=== PATIENT | male | born 1965 | race Caucasian/White ===

== ENCOUNTER → 2019-01-09 14:31 | Outpatient (CLI) | payer OTHER, SELFPAY ==
--- NOTE | 2019-01-09 | DI.RAD.S_ITS ---
PROCEDURE: XR CHEST 2V INDICATIONS: Bronchitis, not specified as acute or chronic TECHNIQUE: 2 views of the chest were acquired. COMPARISON: [facility], , CHEST 2 VIEW, 08/17/2016, 10:55. FINDINGS: Surgical changes and devices: None. Lungs and pleura: Lungs are clear. No pleural effusions or pneumothorax. Mediastinum: Mediastinal contours are normal. Heart size is normal. Bones and chest wall: No suspicious bony abnormalities. Soft tissues appear unremarkable. IMPRESSION: No acute cardiopulmonary disease. Dictated by: Radha Samano M.D. on 01/09/2019 at 17:08 Approved by: Radha Samano M.D. on 01/09/2019 at 17:09
== END ==
PROVIDERS: Family Provider Internal Medicine; PCP Internal Medicine; Visit Provider Internal Medicine
DX: J40 Bronchitis, not specified as acute or chronic (principal)
CPT/HCPCS: 71046

== ENCOUNTER 2019-09-25 16:36 | Emergency (ER) | payer OTHER, SELFPAY ==
--- NOTE | 2019-09-25 16:39 | DI.RAD.S_ITS ---
PROCEDURE: XR CHEST 1V INDICATIONS: chest pain TECHNIQUE: One view of the chest was acquired. COMPARISON: [facility], CT, CHEST/ABD/PEL WITH CONTRAST, 01/24/2015, 15:57. [facility], CR, CHEST 2 VIEW, 08/17/2016, 10:55. [facility], CR, XR CHEST 2V, 01/09/2019, 14:36. FINDINGS: Surgical changes and devices: None. Lungs and pleura: An incomplete inspiratory result is noted, causing a crowded appearance to the lung markings. No focal infiltrates are seen. No pneumothorax or significant pleural effusions are seen. Mediastinum: Mediastinal contours appear normal. Heart size is near the upper limits of normal. Bones and chest wall: No suspicious bony lesions. Age-appropriate bony degenerative changes are seen. Overlying soft tissues appear unremarkable. IMPRESSION: Portable chest within normal limits. Dictated by: Rajan Abbott M.D. on 09/25/2019 at 16:14 Approved by: Rajan Abbott M.D. on 09/25/2019 at 16:15
[2019-09-25 16:45] VITALS: BP 121/83; PULSE 64; RESP 20; TEMP 36.8; O2SAT 97
[2019-09-25 16:59] LABS: Add Manual Diff / Slide Review NO; Basophils Absolute Auto 100 /uL (0-100); Eosinophils Absolute Auto 400 /uL (0-450); Eosinophils Percent Auto 4.3 % (2-4); Lymphocytes Absolute Auto 2600 /uL (1100-4500); Lymphocytes Percent Auto 29.5 % (25-40); Mean Corpuscular HGB Conc 34.1 % (30-36); Monocytes Absolute Auto 800 /uL (0-900); Monocytes Percent Auto 8.7 % (3-14); Neutrophils Absolute Auto 5000 /uL (1500-7000); Neutrophils Percent Auto 56.5 % (50-75); Platelet Count 261 X10^3/uL (150-400); Red Blood Cell Count 4.82 X10^6/uL (4.5-5.9); Red Cell Distribution Width 13.8 % (11.6-14.8); White Blood Cell Count 8.9 X10^3/uL (4.5-11.0)
[2019-09-25 17:08] LABS: Prothrombin Time 11.1 SECONDS (10.1-12.7)
[2019-09-25 17:11] LABS: PTT Partial Thromboplastin Tim 33 SECONDS (26.4-36.2)
[2019-09-25 17:14] LABS: Alanine Aminotransferase 22 IU/L (<50); Albumin 4.2 g/dL (3.5-5.0); Albumin Globulin Ratio 1.2 (1.0-2.8); Alkaline Phosphatase 80 U/L (38-126); Aspartate Aminotransferase 24 IU/L (17-59); BUN Creatinine Ratio 14.4 (6-22); Bilirubin Total 0.3 mg/dL (0.2-1.3); Blood Urea Nitrogen 14 mg/dL (9-20); Calcium 9.3 mg/dL (8.4-10.2); Carbon Dioxide 25 mmol/L (22-32); Chloride 108 mmol/L (98-107); Creatine Kinase 81 U/L (55-170); Estimated Glomerular Filt Rate > 60.0 mL/min (>60); Globulin 3.6 g/dL (1.7-4.1); Glucose 104 mg/dL (70-100); HEMOLYSIS < 15 (0-50); Lipase 155 U/L (23-300); Potassium 3.8 mmol/L (3.4-5.1); Sodium 141 mmol/L (137-145); Total Protein 7.8 g/dL (6.3-8.2)
--- NOTE | 2019-09-25 17:23 | ED_ITS ---
HPI - Chest Pain <SERA Daley - Last Filed: 09/25/19 20:38> General Chief Complaint: Chest Pain Stated Complaint: Chest Pain Time Seen by Provider: 09/25/19 16:44 Source: patient and EMS Mode of arrival: EMS Limitations: no limitations History of Present Illness HPI narrative: This is a 54-year-old gentleman who occasionally smokes cigar who presents to ED with [facility] with chief complain of mid sternal chest pressure that he had for last 10 years on and off but today he felt his pain has been more severe and lasting longer than usual. Patient reports the daily chest comfort is in 2-3/10 in same location but today the the severity increased to 6- 8/10 which occurred at rest while he was sitting on a chair at 1600. Patient denies any aggravating or relieving factors. Patient reports associated symptoms as difficulty breathing, panting breaths but denies nausea, vomiting, cold sweats. Patient denies recent fever, coughing, travel, or ill contact. Patient states when he has chest pain like this he takes half tab of oxycodone and Xanax to help with discomfort. Patient reports he had taken oxycodone and Xanax along additional dose of lisinopril 25 mg and 4 taps of baby aspirin. He has not seen invasive physician Dr. Palacios for last 1.5 year and no recent echoc ardiogram, stress test has been done. Patient received 2 doses of nitroglycerin and 6 mg of morphine per EMS EN route which decrease his symptoms and reports pain as 3/10 at this time without dyspnea. Patient states he has frequent PVCs and takes carvedilol are for this. Patient has history of H pylori and had fundosplasty surgery. His primary care physician is Dr. Mobley and recently discussed about getting EGD in the near future. Related Data Home Medications Medication Instructions Recorded Confirmed ALBUTEROL SULFATE (Ventolin / #0 05/11/10 Proventil) Zolpidem Tartrate (Ambien) #0 05/11/10 ASPIRIN (Aspirin Low Dose) 325 mg PO Q DAY #0 07/17/10 LISINOPRIL (Zestril / Prinivil) 40 mg PO Q DAY #0 07/17/10 alprazolam [Xanax] #0 02/01/17 carvedilol [Coreg] #0 02/01/17 Previous Rx's Medication Instructions Recorded omeprazole 20 mg PO DAILY 14 Days #14 cap 09/25/19 Allergies Allergy/AdvReac Type Severity Reaction Status Date / Time clarithromycin Allergy Mild Verified 09/25/19 16:53 [CLARITHROMYCIN] Review of Systems <SERA Daley - Last Filed: 09/25/19 20:38> Review of Systems Narrative: General: Denies fever, chills, fatigue, malaise, sweats. HEENT: Denies sinus pain, ear pain, sore throat, difficulty swallowing, dizziness. Respiratory: Denies dyspnea, (+) pending like breathing with chest pain, cough, wheezing, hemoptysis, sputum. Cardiovascular: See HPI Gastrointestinal: Denies nausea, vomiting, abdominal pain, diarrhea, constipation, melena. : Denies dysuria, frequency, incontinence, hematuria, urinary retention. Musculoskeletal: Denies weakness, joint pain or bony pain. Skin: Denies rash, skin lesions, or other. Neurologic: Denies weakness, headache, numbness, change in speech, confusion, seizures, incoordination. Psychiatric: No concerning psychosocial issues. 12-point review of systems is negative except for those stated above. Patient History <SERA Daley - Last Filed: 09/25/19 20:38> Medical History Anxiety (Acute) Chest pain (Acute) H. pylori infection (Acute) Hypertension (Acute) Social History Smoking Status: Former smoker Smoking Status: Former smoker tobacco type: cigars alcohol intake frequency: 0-2 drinks per day Substance Use Type: does not use Exam <SERA Daley - Last Filed: 09/25/19 20:38> Narrative Exam Narrative: GEN: Alert, oriented x 3, well appearing and nourished, and in no acute distress. Head: Normal cephalic, atraumatic. No scalp or temporal tenderness, palpable mass or rash. EYES: Pupils are equal, round, and reactive to light and accommodation. Extraocular muscles are intact bilaterally. There is no subconjunctival hemorrhage, exudate and sclera non-icteric. ENT: Bilateral auditory canals and tympanic membranes clear. Hearing grossly intact. Nose without bleeding, purulent discharge or deviation. Facial sinuses nontender to palpate. Mucous membrane moist, no mucosal lesion. Throat without erythema, tonsillar hypertrophy or exudate. Uvula in midline, airway patent. Neck: Trachea in midline. No JVD, non-tender without lymphadenopathy. No masses or thyroid megaly. Supple, non-tender and no meningeal signs. CARDIAC: Normal regular rate and rhythm without murmurs, gallops, or rubs. No chest wall tenderness. No peripheral edema, cyanosis or pallor. Capillary refill is less than 2 seconds. RESPIRATORY: Lungs are clear to auscultate bilaterally. No cough, wheezes, r ales, or rhonchi. No stridor, respiratory distress, increase work of breathing, or accessary muscle used. ABD: Abdomen soft, nontender and non-distended. No guarding or rebound tenderness to palpate. Bowel sounds are normal in all 4 quadrants. There is no palpable masses or organomegaly. EXT: Full painless ROM of all extremities with no loss of sensation, strength, effusion or edema. SKIN: Warm, dry, normal color for patient. No erythema, lesions or rash over visible areas. BACK: Nontender without deformity or crepitance. No flank tenderness. NEUROLOGICAL: Alert and oriented to place, time and person. Sensation and motor function intact bilaterally. No facial droops, dysphasia. PSYCHIATRIC: Good judgement and reason, without hallucinations, abnormal affect or abnormal behaviors during the examination. Patient is not suicidal. Initial Vital Signs Initial Vital Signs: Vital Signs Temperature 98.2 F 09/25/19 16:45 Pulse Rate 64 09/25/19 16:45 Respiratory Rate 20 09/25/19 16:45 Blood Pressure 121/83 09/25/19 16:45 Pulse Oximetry 97 09/25/19 16:45 <Meet Mott DO - Last Filed: 09/26/19 07:29> Initial Vital Signs Initial Vital Signs: Vital Signs Temperature 98.2 F 09/25/19 16:45 Pulse Rate 64 09/25/19 16:45 Respiratory Rate 20 09/25/19 16:45 Blood Pressure 121/83 09/25/19 16:45 Pulse Oximetry 97 09/25/19 16:45 Scores <[facility] - Last Filed: 09/25/19 20:38> GCS [place] coma scale eye opening: Spontaneous Ron coma scale verbal response: Orientated Ron coma scale motor response: Obey commands [place] coma scale total score: 15 HEART Score Heart Score history: Slightly Suspicious Heart Score EKG: Normal Heart Score Age: 45-64 years old Heart Score risk factors: 1-2 risk factors Heart Score troponin: < or = to normal limit Heart Score Total: 2 Course <[facility] - Last Filed: 09/25/19 20:38> Orders Ordered: Discontinued Medications Pantoprazole Sodium (Protonix) 40 mg IV NOW ONE Stop: 09/25/19 17:11 Last Admin: 09/25/19 17:33 Dose: 40 mg Documented by: VIOLETA Reevaluation(s) Reevaluation #1: The patient reports chest pain mostly resolved at this time and feeling better. Time: 18:25 Vital Signs Vital signs: Vital Signs - 8 hr 09/25/19 16:45 09/25/19 17:33 09/25/19 18:34 Temperature 98.2 F Pulse Rate 64 64 62 Respiratory Rate 20 18 13 Blood Pressure 121/83 Blood Pressure [Right Arm] 111/70 126/78 Pulse Oximetry 97 97 96 09/25/19 20:14 Temperature Pulse Rate 60 Respiratory Rate 10 L Blood Pressure Blood Pressure [Right Arm] 130/80 Pulse Oximetry 97 <Meet Mott DO - Last Filed: 09/26/19 07:29> Orders Ordered: Discontinued Medications Pantoprazole Sodium (Protonix) 40 mg IV NOW ONE Stop: 09/25/19 17:11 Last Admin: 09/25/19 17:33 Dose: 40 mg Documented by: VIOLETA Vital Signs Vital signs: Vital Signs - 8 hr 09/25/19 16:45 09/25/19 17:33 09/25/19 18:34 Temperature 98.2 F Pulse Rate 64 64 62 Respiratory Rate 20 18 13 Blood Pressure 121/83 Blood Pressure [Right Arm] 111/70 126/78 Pulse Oximetry 97 97 96 09/25/19 20:14 Temperature Pulse Rate 60 Respiratory Rate 10 L Blood Pressure Blood Pressure [Right Arm] 130/80 Pulse Oximetry 97 MDM - Chest Pain <Shalom SERA Pedro - Last Filed: 09/25/19 20:38> Differential Diagnosis Differential diagnosis: Likely stable angina, atypical chest pain and other (GERD, gastritis) Medical Records Data Attestation: I reviewed the patient's medical records. Lab Data Attestation: I reviewed the patient's lab results. Result diagrams: 09/25/19 16:50 09/25/19 16:50 Labs: Lab Results 09/25/19 09/25/19 09/25/19 Range/Units 16:50 16:50 16:50 WBC 8.9 (4.5-11.0) X10^3/uL RBC 4.82 (4.5-5.9) X10^6/uL Hgb 14.0 (13.5-17.5) g/dL Hct 41.0 (41-53) % MCV 85.0 (80-100) fL MCH 29.0 (26-34) PG MCHC 34.1 (30-36) % RDW 13.8 (11.6-14.8) % Plt Count 261 (150-400) X10^3/uL Neut % (Auto) 56.5 (50-75) % Lymph % (Auto) 29.5 (25-40) % [place] % (Auto) 8.7 (3-14) % Eos % (Auto) 4.3 H (2-4) % Baso % (Auto) 1.0 (0-2) % Neut # (Auto) 5000 (9705-2789) /uL Lymph # (Auto) 2600 (1160-6410) /uL [place] # (Auto) 800 (0-900) /uL Eos # (Auto) 400 (0-450) /uL Baso # (Auto) 100 (0-100) /uL PT 11.1 (10.1-12.7) SECONDS INR 1.0 (0.9-1.3) APTT 33 (26.4-36.2) SECONDS Sodium 141 (137-145) mmol/L Potassium 3.8 (3.4-5.1) mmol/L Chloride 108 H (98-107) mmol/L Carbon Dioxide 25 (22-32) mmol/L BUN 14 (9-20) mg/dL Creatinine 0.97 (0.66-1.25) mg/dL Estimated GFR > 60.0 (>60) mL/min BUN/Creatinine Ratio 14.4 (6-22) Glucose 104 H (70-100) mg/dL Calcium 9.3 (8.4-10.2) mg/dL Total Bilirubin 0.3 (0.2-1.3) mg/dL AST 24 (17-59) IU/L ALT 22 (<50) IU/L Alkaline Phosphatase 80 (38-126) U/L Total Creatine Kinase 81 (55-170) U/L CK-MB (CK-2) TNP CK-MB (CK-2) Rel Index TNP Troponin I < 0.012 (0.01-0.034) ng/mL Total Protein 7.8 (6.3-8.2) g/dL Albumin 4.2 (3.5-5.0) g/dL Globulin 3.6 (1.7-4.1) g/dL Albumin/Globulin Ratio 1.2 (1.0-2.8) Lipase 155 (23-300) U/L 09/25/19 Range/Units 19:14 WBC (4.5-11.0) X10^3/uL RBC (4.5-5.9) X10^6/uL Hgb (13.5-17.5) g/dL Hct (41-53) % MCV (80-100) fL MCH (26-34) PG MCHC (30-36) % RDW (11.6-14.8) % Plt Count (150-400) X10^3/uL Neut % (Auto) (50-75) % Lymph % (Auto) (25-40) % [place] % (Auto) (3-14) % Eos % (Auto) (2-4) % Baso % (Auto) (0-2) % Neut # (Auto) (7457-3985) /uL Lymph # (Auto) (0562-2391) /uL [place] # (Auto) (0-900) /uL Eos # (Auto) (0-450) /uL Baso # (Auto) (0-100) /uL PT (10.1-12.7) SECONDS INR (0.9-1.3) APTT (26.4-36.2) SECONDS Sodium (137-145) mmol/L Potassium (3.4-5.1) mmol/L Chloride (98-107) mmol/L Carbon Dioxide (22-32) mmol/L BUN (9-20) mg/dL Creatinine (0.66-1.25) mg/dL Estimated GFR (>60) mL/min BUN/Creatinine Ratio (6-22) Glucose (70-100) mg/dL Calcium (8.4-10.2) mg/dL Total Bilirubin (0.2-1.3) mg/dL AST (17-59) IU/L ALT (<50) IU/L Alkaline Phosphatase (38-126) U/L Total Creatine Kinase 75 (55-170) U/L CK-MB (CK-2) TNP CK-MB (CK-2) Rel Index TNP Troponin I < 0.012 (0.01-0.034) ng/mL Total Protein (6.3-8.2) g/dL Albumin (3.5-5.0) g/dL Globulin (1.7-4.1) g/dL Albumin/Globulin Ratio (1.0-2.8) Lipase (23-300) U/L Imaging Data Chest x-ray: Radiologist's Impression: [place] [address] XRay Report Signed Patient: Wali Eric KMR#: [id number] : 1965Acct:[id number] Age/Sex: 54 / MDate of Service: 09/25/19 Loc: ED Accession Number: [id number] Procedure: XR chest 1V Ordering Provider: Meet Mott D.O. PROCEDURE: XR CHEST 1V INDICATIONS: chest pain TECHNIQUE: One view of the chest was acquired. COMPARISON: [facility], CT, CHEST/ABD/PEL WITH CONTRAST, 01/24/2015, 15:57. [facility], CR, CHEST 2 VIEW, 08/17/2016, 10:55. [facility], CR, XR CHEST 2V, 01/09/2019, 14:36. FINDINGS: Surgical changes and devices: None. Lungs and pleura: An incomplete inspiratory result is noted, causing a crowded appearance to the lung markings. No focal infiltrates are seen. No pneumothorax or significant pleural effusions are seen. Mediastinum: Mediastinal contours appear normal. Heart size is near the upper limits of normal. Bones and chest wall: No suspicious bony lesions. Age-appropriate bony degenerative changes are seen. Overlying soft tissues appear unremarkable. IMPRESSION: Portable chest within normal limits. Dictated by: Rajan Abbott M.D. on 09/25/2019 at 16:14 Approved by: Rajan Abbott M.D. on 09/25/2019 at 16:15 ECG Data Attestation: I personally reviewed and interpreted this ECG as follows: Interpretation: Sinus rhythm rate at 67. Normal [place]. SC int 200, QRS duration 84, QT/QTC 418/[address] elevation or depression. Previous EKG shows sinus rhythm and SVT with nonspecific T-wave abnormality MDM Narrative Medical decision making narrative: This is a 54-year-old gentleman who was brought in by would be EMS with mid chest pressure like discomfort which started at 4:00 p.m. at rest with some difficulty breathing. Patient reports patient has similar discomfort for last 10 years but today the pain seems little bit more severe and lasted longer. Patient had taken oxycodone, Xanax, and 4 baby aspirins before coming into ED. patient was medicated with nitroglycerin 2 doses and morphine 6 mg and rale to ED. patient's physical exam was unremarkable. EKG was in sinus rhythm rate at 67. CBC and chemistry Tests were unremarkable with normal PT, PTT. Initial and 2nd cardiac enzymes were negative. Chest x-ray did not show acute findings. Patient reports resolved symptoms after medicated with pantoprazole. Findings were discussed with the patient. Patient has a history of H pyloric and cholecystectomy. Patient is not currently taking any PPI but states take anti acid as needed. Patient discharged to home with omeprazole for next 2 weeks to use and follow with PCP to discuss continue with planned EGD test and also to follow-up with invasive physician for further evaluation. Return precautions were discussed with patient and verbalized understanding and in agreement with treatment plan. <Meet Mott, - Last Filed: 09/26/19 07:29> Lab Data Labs: Lab Results 09/25/19 09/25/19 09/25/19 Range/Units 16:50 16:50 16:50 WBC 8.9 (4.5-11.0) X10^3/uL RBC 4.82 (4.5-5.9) X10^6/uL Hgb 14.0 (13.5-17.5) g/dL Hct 41.0 (41-53) % MCV 85.0 (80-100) fL MCH 29.0 (26-34) PG MCHC 34.1 (30-36) % RDW 13.8 (11.6-14.8) % Plt Count 261 (150-400) X10^3/uL Neut % (Auto) 56.5 (50-75) % Lymph % (Auto) 29.5 (25-40) % [place] % (Auto) 8.7 (3-14) % Eos % (Auto) 4.3 H (2-4) % Baso % (Auto) 1.0 (0-2) % Neut # (Auto) 5000 (3061-1500) /uL Lymph # (Auto) 2600 (2382-1578) /uL [place] # (Auto) 800 (0-900) /uL Eos # (Auto) 400 (0-450) /uL Baso # (Auto) 100 (0-100) /uL PT 11.1 (10.1-12.7) SECONDS INR 1.0 (0.9-1.3) APTT 33 (26.4-36.2) SECONDS Sodium 141 (137-145) mmol/L Potassium 3.8 (3.4-5.1) mmol/L Chloride 108 H (98-107) mmol/L Carbon Dioxide 25 (22-32) mmol/L BUN 14 (9-20) mg/dL Creatinine 0.97 (0.66-1.25) mg/dL Estimated GFR > 60.0 (>60) mL/min BUN/Creatinine Ratio 14.4 (6-22) Glucose 104 H (70-100) mg/dL Calcium 9.3 (8.4-10.2) mg/dL Total Bilirubin 0.3 (0.2-1.3) mg/dL AST 24 (17-59) IU/L ALT 22 (<50) IU/L Alkaline Phosphatase 80 (38-126) U/L Total Creatine Kinase 81 (55-170) U/L CK-MB (CK-2) TNP CK-MB (CK-2) Rel Index TNP Troponin I < 0.012 (0.01-0.034) ng/mL Total Protein 7.8 (6.3-8.2) g/dL Albumin 4.2 (3.5-5.0) g/dL Globulin 3.6 (1.7-4.1) g/dL Albumin/Globulin Ratio 1.2 (1.0-2.8) Lipase 155 (23-300) U/L 09/25/19 Range/Units 19:14 WBC (4.5-11.0) X10^3/uL RBC (4.5-5.9) X10^6/uL Hgb (13.5-17.5) g/dL Hct (41-53) % MCV (80-100) fL MCH (26-34) PG MCHC (30-36) % RDW (11.6-14.8) % Plt Count (150-400) X10^3/uL Neut % (Auto) (50-75) % Lymph % (Auto) (25-40) % [place] % (Auto) (3-14) % Eos % (Auto) (2-4) % Baso % (Auto) (0-2) % Neut # (Auto) (3238-5204) /uL Lymph # (Auto) (5100-4059) /uL [place] # (Auto) (0-900) /uL Eos # (Auto) (0-450) /uL Baso # (Auto) (0-100) /uL PT (10.1-12.7) SECONDS INR (0.9-1.3) APTT (26.4-36.2) SECONDS Sodium (137-145) mmol/L Potassium (3.4-5.1) mmol/L Chloride (98-107) mmol/L Carbon Dioxide (22-32) mmol/L BUN (9-20) mg/dL Creatinine (0.66-1.25) mg/dL Estimated GFR (>60) mL/min BUN/Creatinine Ratio (6-22) Glucose (70-100) mg/dL Calcium (8.4-10.2) mg/dL Total Bilirubin (0.2-1.3) mg/dL AST (17-59) IU/L ALT (<50) IU/L Alkaline Phosphatase (38-126) U/L Total Creatine Kinase 75 (55-170) U/L CK-MB (CK-2) TNP CK-MB (CK-2) Rel Index TNP Troponin I < 0.012 (0.01-0.034) ng/mL Total Protein (6.3-8.2) g/dL Albumin (3.5-5.0) g/dL Globulin (1.7-4.1) g/dL Albumin/Globulin Ratio (1.0-2.8) Lipase (23-300) U/L Discharge Plan Departure Patient Disposition: Home Clinical Impression: Atypical chest pain Discharge Date/Time: 09/25/19 20:33 Instructions: DI for Atypical Chest Pain Activity Restrictions/Additional Instructions: You have been diagnosed with [atypical chest pain is likely due to esophageal spasm. EKG is normal sinus rhythm. CBC and chemistries were unremarkable. Cardiac enzymes for Initial and post 3 hour after the onset of chest pain were negative. Chest x-ray Does not show acute findings. Your symptoms have improved after your arrived to ED and received pantoprazole IV]. What to do: *Take your medications as directed. Please continue your medications and start taking omeprazole once a day for next 2 weeks. This medication has been transmitted to [facility] in [place] *Follow up with your primary care provider in 2-3 days, call for an appointment. Let them know you were seen in the ED and that we asked you to be seen in follow up. Please continue with the plan for EGD with Dr. Mobley. Please follow-up with your invasive physician Dr. Palacios for further evaluation and testing. *Return to ED if you have any new, worsening, or concerning symptoms, such as [chest pain, breathing difficulty, unable to tolerate fluids, fainting like episodes, or any acute concerns]. Prescriptions: New omeprazole 20 mg capsule,delayed release(DR/EC) 20 mg PO DAILY 14 Days Qty: 14 RF: 0 No Action ALBUTEROL SULFATE (Ventolin / Proventil) Qty: 0 RF: 0 Zolpidem Tartrate (Ambien) Qty: 0 RF: 0 ASPIRIN (Aspirin Low Dose) 325 mg PO Q DAY Qty: 0 RF: 0 LISINOPRIL (Zestril / Prinivil) 40 mg PO Q DAY Qty: 0 RF: 0 carvedilol [Coreg] 25 MG tablet Qty: 0 RF: 0 alprazolam [Xanax] 0.5 MG tablet Qty: 0 RF: 0 Referrals: Eder Rivera MD [Primary Care Provider] - <Meet Mott DO - Last Filed: 09/26/19 07:29> Sign Out Provider Sign Out Attestation: Dr Mott Co-Sign Statement: I was available for consultation during this patient's emergency department visit. This chart is signed by myself for administrative purposes only. I did not have direct contact with this patient during this visit. They were seen independently by the APC.
[2019-09-25 17:25] LABS: Troponin I < 0.012 ng/mL (0.01-0.034)
[2019-09-25 17:33] VITALS: BP 111/70; PULSE 64; RESP 18; O2SAT 97
[2019-09-25] MEDS: PANTOPRAZOLE 40 MG VIAL IV (17:33)
[2019-09-25 18:34] VITALS: BP 126/78; PULSE 62; RESP 13; O2SAT 96
[2019-09-25 19:29] LABS: Creatine Kinase 75 U/L (55-170)
[2019-09-25 19:42] LABS: Troponin I < 0.012 ng/mL (0.01-0.034)
--- NOTE | 2019-09-25 19:43 | PC.NURSE ---
repeat trop drawn by lab
[2019-09-25 20:14] VITALS: BP 130/80; PULSE 60; RESP 10; O2SAT 97
== END 2019-09-25 20:33 | disposition home or self-care (01) ==
PROVIDERS: Emergency Medicine; Emergency Provider Nurse Practitioner Family; Family Provider Internal Medicine; PCP Internal Medicine
DX: R07.89 Other chest pain (principal); F41.9 Anxiety disorder, unspecified; I10 Essential (primary) hypertension
CPT/HCPCS: 36415; 71045; 80053; 82550; 83690; 84484; 85025; 85610; 85730; 93005; 96374; 99284; C9113

== ENCOUNTER → 2020-05-20 15:05 | Outpatient (CLI) | payer OTHER, SELFPAY ==
--- NOTE | 2020-05-20 15:37 | DI.RAD.S_ITS ---
PROCEDURE: XR LUMBAR SPINE 2-3V INDICATIONS: LOW BACK PAIN TECHNIQUE: 3 views of the lumbar spine were acquired. COMPARISON: None. FINDINGS: Bones: 5 [id number] vertebrae are present. There is normal bony alignment. No vertebral body compression fractures. No suspicious bony lesions. Note is made of a mild degree of degenerative disc height reduction from L3 through S1, but facet osteoarthritis is moderate at L3-4 and L4-5 and moderately severe at L5-S1. This allows anterolisthesis, grade 1, of L4 on L5. Soft tissues: Overlying bowel gas pattern is normal. No suspicious soft tissue calcifications. IMPRESSION: Only a small degree of degenerative disc disease is found best seen at L5-S1. Facet osteoarthritis becomes progressively more prominent from L3 through S1 and is most pronounced at L5-S1 where spinal and foraminal stenosis likely is present. Dictated by: Conor Dumont M.D. on 05/20/2020 at 16:25 Approved by: Conor Dumont M.D. on 05/20/2020 at 16:27
== END ==
PROVIDERS: Family Provider Internal Medicine; PCP Internal Medicine; Referring Provider Orthopaedic Surgery; Visit Provider Orthopaedic Surgery
DX: M54.5 Low back pain (principal); R07.2 Precordial pain; M47.816 Spondylosis without myelopathy or radiculopathy, lumbar region; M47.817 Spondylosis without myelopathy or radiculopathy, lumbosacral region
CPT/HCPCS: 72100

== ENCOUNTER 2020-10-02 16:52 | Emergency (ER) | payer OTHER, SELFPAY ==
[2020-10-02] VITALS (10 sets, daily range): BP systolic 133–178; BP diastolic 72–89; PULSE 69–90; RESP 13–22; TEMP 36.8; O2SAT 98–100; BMI 30.5
--- NOTE | 2020-10-02 17:08 | DI.RAD.S_ITS ---
PROCEDURE: XR CHEST 1V INDICATIONS: chest pain TECHNIQUE: One view of the chest was acquired. COMPARISON: [facility], CR, CHEST 2VW, 05/02/2012, 12:18. [facility], CR, CHEST 2 VIEW, 08/17/2016, 10:55. [facility], CR, XR CHEST 2V, 01/09/2019, 14:36. [facility], CR, XR CHEST 1V, 09/25/2019, 16:51. FINDINGS: Surgical changes and devices: None. Lungs and pleura: An incomplete inspiratory result is noted, causing a crowded appearance to the lung markings. No focal infiltrates are seen. No pneumothorax or significant pleural effusions are seen. Mediastinum: Mediastinal contours appear normal. Heart size is normal. Bones and chest wall: No suspicious bony lesions. Overlying soft tissues appear unremarkable. IMPRESSION: Limited portable chest examination, without a significant cardiopulmonary abnormality identified. Dictated by: Rajan Abbott M.D. on 10/02/2020 at 16:27 Approved by: Rajan Abbott M.D. on 10/02/2020 at 16:27
[2020-10-02 17:25] LABS: Add Manual Diff / Slide Review NO; Basophils Absolute Auto 100 /uL (0-100); Basophils Percent Auto 0.9 % (0-2); Eosinophils Absolute Auto 200 /uL (0-450); Eosinophils Percent Auto 2.2 % (2-4); Hematocrit 43.1 % (41-53); Hemoglobin 14.7 g/dL (13.5-17.5); INR 1.1 (0.9-1.3); Lymphocytes Absolute Auto 2600 /uL (1100-4500); Lymphocytes Percent Auto 27.6 % (25-40); Mean Corpuscular HGB Conc 34.1 % (30-36); Mean Corpuscular Hemoglobin 28.9 PG (26-34); Mean Corpuscular Volume 84.9 fL (80-100); Monocytes Absolute Auto 900 /uL (0-900); Monocytes Percent Auto 9.4 % (3-14); Neutrophils Absolute Auto 5600 /uL (1500-7000); Neutrophils Percent Auto 59.9 % (50-75); Platelet Count 240 X10^3/uL (150-400); Prothrombin Time 12.3 SECONDS (10.1-12.7); Red Blood Cell Count 5.08 X10^6/uL (4.5-5.9); Red Cell Distribution Width 13.8 % (11.6-14.8); White Blood Cell Count 9.4 X10^3/uL (4.5-11.0)
[2020-10-02 17:27] LABS: PTT Partial Thromboplastin Tim 32 SECONDS (26.4-36.2)
[2020-10-02] MEDS: FAMOTIDINE 20 MG/50 ML PIGGYBACK 200 MG IV (17:27)
[2020-10-02] MEDS: MAG HYDROX/ALUMINUM/SIMETH SUS 20 ML, LIDOCAINE VISCOUS 2% 15 ML PO (17:27)
[2020-10-02 17:29] LABS: Alanine Aminotransferase 22 IU/L (<50); Albumin 4.4 g/dL (3.5-5.0); Albumin Globulin Ratio 1.3 (1.0-2.8); Alkaline Phosphatase 85 U/L (38-126); Aspartate Aminotransferase 26 IU/L (17-59); BUN Creatinine Ratio 13.8 (6-22); Bilirubin Total 0.3 mg/dL (0.2-1.3); Blood Urea Nitrogen 15 mg/dL (9-20); Calcium 9.5 mg/dL (8.4-10.2); Carbon Dioxide 28 mmol/L (22-32); Chloride 107 mmol/L (98-107); Creatine Kinase 99 U/L (55-170); Estimated Glomerular Filt Rate > 60.0 mL/min (>60); Globulin 3.5 g/dL (1.7-4.1); Glucose 85 mg/dL (70-100); HEMOLYSIS < 15 (0-50); Lipase 107 U/L (23-300); Potassium 3.9 mmol/L (3.4-5.1); Sodium 143 mmol/L (137-145); Total Protein 7.9 g/dL (6.3-8.2)
[2020-10-02 17:41] LABS: NT-proBNP (BNP-Adult 18+) 209 pg/mL (<125); Troponin I < 0.012 ng/mL (0.01-0.034)
--- NOTE | 2020-10-02 17:49 | PC.NURSE ---
Patient comes in to the ED with a complaint of having 10 years of chest pain. His said that today he took some CBD drops but is unable to state what he took exactly.
--- NOTE | 2020-10-02 18:08 | ED.CHESTPAIN ---
HPI - Chest Pain General Chief Complaint: Chest Pain Stated Complaint: Chest pain Time Seen by Provider: 10/02/20 17:05 Source: patient Mode of arrival: Ambulatory Limitations: no limitations History of Present Illness HPI narrative: Patient is a 55-year-old male who has had issues with ulcers and esophageal spasms in the past. He has had a Jon fundoplication in the past. Here for evaluation of a fairly sudden onset of sharp chest discomfort located in his mid chest and upper abdomen. He did occur while he was eating earlier today when the event happened. He states that he did eat more this evening when he normally does. He also ate some types of food which he normally does not eat and did think that they were very spicy. At the time my evaluation he did report improvement of some of his symptoms however he did receive GI medications prior to my arrival. He has had symptoms like this in the past specifically 1 year ago when he states that at that time he had a workup for cardiac issues in the emergency department and was subsequently discharged. Related Data Home Medications Medication Instructions Recorded Confirmed ALBUTEROL SULFATE (Ventolin / #0 05/11/10 Proventil) Zolpidem Tartrate (Ambien) #0 05/11/10 ASPIRIN (Aspirin Low Dose) 325 mg PO Q DAY #0 07/17/10 LISINOPRIL (Zestril / Prinivil) 40 mg PO Q DAY #0 07/17/10 alprazolam [Xanax] #0 02/01/17 carvedilol [Coreg] #0 02/01/17 Allergies Allergy/AdvReac Type Severity Reaction Status Date / Time clarithromycin Allergy Mild Verified 10/02/20 17:06 [CLARITHROMYCIN] Review of Systems Constitutional Constitutional: Denies fatigue, Denies fever(s) and Denies headache(s) Eyes Eyes: Denies change in vision ENT Ears, Nose, Mouth, and Throat: Denies headache(s) Cardiovascular Cardiovascular: Reports chest pain and Denies dyspnea Respiratory Respiratory: Denies dyspnea Gastrointestinal Gastrointestinal: Reports abdominal pain (Upper abdomen), Denies change in bowel habits, Denies nausea and Denies vomiting Genitourinary Genitourinary: Denies dysuria Genitourinary: Denies dysuria Musculoskeletal Musculoskeletal: Denies myalgias Integumentary/Breasts Skin/Breast: Denies rash Neurologic Neurologic: Denies behavioral changes and Denies headache(s) Psychiatric Psychiatric: Denies behavioral changes Endocrine Endocrine: Denies fatigue Hematologic/Lymphatic On Anticoagulants: No Allergic/Immunologic Allergic/Immunologic: Denies urticaria Patient History Medical History Anxiety Chest pain H. pylori infection Hypertension Social History Smoking Status: Former smoker Smoking Status: Former smoker tobacco type: cigars alcohol intake frequency: 0-2 drinks per day Substance Use Type: does not use Exam Initial Vital Signs Initial Vital Signs: Vital Signs Temperature 98.2 F 10/02/20 16:59 Pulse Rate 84 10/02/20 16:59 Respiratory Rate 16 10/02/20 16:59 Blood Pressure 178/88 H 10/02/20 16:59 Pulse Oximetry 99 10/02/20 16:59 Const General: cooperative and comfortable Limitations: mental status not altered HENMT Head: normal to inspection and normocephalic Chest Chest: No crepitus and No tenderness Resp Effort & Inspection: normal respiratory effort Auscultation: clear to auscultation bilaterally Cardio Rate: regular rate Rhythm: regular rhythm GI Inspection: non-distended Palpation: soft Skin Lesions: no lesions Rashes: no rashes Neuro General: patient alert, patient awake and patient oriented x3 Cognition: normal cognition Speech: speech normal Extrem General: normal to inspection and capillary refill normal Psych Appearance: grossly normal and well kempt Scores HEART Score Heart Score history: Slightly Suspicious Heart Score EKG: Non-Specific repolarization disturbance Heart Score Age: 45-64 years old Heart Score risk factors: 1-2 risk factors Heart Score troponin: < or = to normal limit Heart Score Total: 3 Course Orders Ordered: ED Orders 10/02/20 17:04 Complete Blood Count AUTO DIFF Stat Comprehensive Metabolic Panel Stat Lipase Stat NT-proBNP (BNP-Adult 18+) Stat Partial Thromboplastin Time Stat Prothrombin Time INR Stat Troponin & CK Cardiac Panel Stat 10/02/20 17:08 XR chest 1V Stat 10/02/20 19:00 Troponin & CK Cardiac Panel Stat Discontinued Medications Al Hydrox/Mg Hydrox/Simethicone 20 ml/ Lidocaine HCl 15 ml 0 ml PO NOW ONE Stop: 10/02/20 17:22 Last Admin: 10/02/20 17:27 Dose: 35 ml Documented by: CORRY Famotidine (Pepcid) 20 mg in 50 mls @ 200 mls/hr IV NOW ONE Stop: 10/02/20 17:34 Last Infusion: 10/02/20 17:49 Dose: 0 mls/hr Documented by: Admin: 10/02/20 17:27 Dose: 200 mls/hr Documented by: CORRY Vital Signs Vital signs: Vital Signs - 8 hr 10/02/20 16:59 10/02/20 17:00 10/02/20 17:30 Temperature 98.2 F Pulse Rate 84 90 79 Respiratory Rate 16 22 19 Blood Pressure 178/88 H 178/88 H 159/89 H Pulse Oximetry 99 100 99 10/02/20 18:00 10/02/20 18:30 10/02/20 19:30 Temperature Pulse Rate 70 69 71 Respiratory Rate 13 14 16 Blood Pressure 134/72 147/83 H 133/78 Pulse Oximetry 99 99 99 10/02/20 20:00 10/02/20 20:14 10/02/20 20:17 Temperature Pulse Rate 70 69 73 Respiratory Rate 15 14 15 Blood Pressure 133/77 147/83 H 138/77 Pulse Oximetry 98 99 98 10/02/20 20:23 Temperature Pulse Rate 69 Respiratory Rate 18 Blood Pressure 133/77 Pulse Oximetry 99 MDM - Chest Pain Lab Data Attestation: I reviewed the patient's lab results. Result diagrams: 10/02/20 17:04 10/02/20 17:04 Labs: Lab Results 10/02/20 10/02/20 10/02/20 Range/Units 17:04 17:04 17:04 WBC 9.4 (4.5-11.0) X10^3/uL RBC 5.08 (4.5-5.9) X10^6/uL Hgb 14.7 (13.5-17.5) g/dL Hct 43.1 (41-53) % MCV 84.9 (80-100) fL MCH 28.9 (26-34) PG MCHC 34.1 (30-36) % RDW 13.8 (11.6-14.8) % Plt Count 240 (150-400) X10^3/uL Neut % (Auto) 59.9 (50-75) % Lymph % (Auto) 27.6 (25-40) % Garden % (Auto) 9.4 (3-14) % Eos % (Auto) 2.2 (2-4) % Baso % (Auto) 0.9 (0-2) % Neut # (Auto) 5600 (7188-3051) /uL Lymph # (Auto) 2600 (6535-6768) /uL Garden # (Auto) 900 (0-900) /uL Eos # (Auto) 200 (0-450) /uL Baso # (Auto) 100 (0-100) /uL PT 12.3 (10.1-12.7) SECONDS INR 1.1 (0.9-1.3) APTT 32 (26.4-36.2) SECONDS Sodium 143 (137-145) mmol/L Potassium 3.9 (3.4-5.1) mmol/L Chloride 107 (98-107) mmol/L Carbon Dioxide 28 (22-32) mmol/L BUN 15 (9-20) mg/dL Creatinine 1.09 (0.66-1.25) mg/dL Estimated GFR > 60.0 (>60) mL/min BUN/Creatinine Ratio 13.8 (6-22) Glucose 85 (70-100) mg/dL Calcium 9.5 (8.4-10.2) mg/dL Total Bilirubin 0.3 (0.2-1.3) mg/dL AST 26 (17-59) IU/L ALT 22 (<50) IU/L Alkaline Phosphatase 85 (38-126) U/L Total Creatine Kinase 99 (55-170) U/L CK-MB (CK-2) TNP CK-MB (CK-2) Rel Index TNP Troponin I < 0.012 (0.01-0.034) ng/mL NT-Pro-B Natriuret Pep 209 H (<125) pg/mL Total Protein 7.9 (6.3-8.2) g/dL Albumin 4.4 (3.5-5.0) g/dL Globulin 3.5 (1.7-4.1) g/dL Albumin/Globulin Ratio 1.3 (1.0-2.8) Lipase (23-300) U/L 10/02/20 10/02/20 Range/Units 17:04 19:00 WBC (4.5-11.0) X10^3/uL RBC (4.5-5.9) X10^6/uL Hgb (13.5-17.5) g/dL Hct (41-53) % MCV (80-100) fL MCH (26-34) PG MCHC (30-36) % RDW (11.6-14.8) % Plt Count (150-400) X10^3/uL Neut % (Auto) (50-75) % Lymph % (Auto) (25-40) % Garden % (Auto) (3-14) % Eos % (Auto) (2-4) % Baso % (Auto) (0-2) % Neut # (Auto) (2952-2854) /uL Lymph # (Auto) (6211-0401) /uL Garden # (Auto) (0-900) /uL Eos # (Auto) (0-450) /uL Baso # (Auto) (0-100) /uL PT (10.1-12.7) SECONDS INR (0.9-1.3) APTT (26.4-36.2) SECONDS Sodium (137-145) mmol/L Potassium (3.4-5.1) mmol/L Chloride (98-107) mmol/L Carbon Dioxide (22-32) mmol/L BUN (9-20) mg/dL Creatinine (0.66-1.25) mg/dL Estimated GFR (>60) mL/min BUN/Creatinine Ratio (6-22) Glucose (70-100) mg/dL Calcium (8.4-10.2) mg/dL Total Bilirubin (0.2-1.3) mg/dL AST (17-59) IU/L ALT (<50) IU/L Alkaline Phosphatase (38-126) U/L Total Creatine Kinase 86 (55-170) U/L CK-MB (CK-2) TNP CK-MB (CK-2) Rel Index TNP Troponin I < 0.012 (0.01-0.034) ng/mL NT-Pro-B Natriuret Pep (<125) pg/mL Total Protein (6.3-8.2) g/dL Albumin (3.5-5.0) g/dL Globulin (1.7-4.1) g/dL Albumin/Globulin Ratio (1.0-2.8) Lipase 107 (23-300) U/L Imaging Data Chest x-ray: Radiologist's Impression: [place] [id number] [place] [id number] ReportSigned Patient: Wali Eric KMR#: [id number]: 1965Acct:[id number]/Sex: 55 / MDate of Service: 10/02/20Loc: EDAccession Number: [id number] Procedure: XR chest 1V Ordering Provider: Keith Whitehead D.O. PROCEDURE: XR CHEST 1V INDICATIONS: chest pain TECHNIQUE: One view of the chest was acquired. COMPARISON: [facility], CR, CHEST 2VW, 05/02/2012, 12:18. [facility], CR, CHEST 2 VIEW, 08/17/2016, 10:55. [facility], CR, XR CHEST 2V, 01/09/2019, 14:36. [facility], CR, XR CHEST 1V, 09/25/2019, 16:51. FINDINGS: Surgical changes and devices: None. Lungs and pleura: An incomplete inspiratory result is noted, causing a crowded appearance to the lung markings. No focal infiltrates are seen. No pneumothorax or significant pleural effusions are seen. Mediastinum: Mediastinal contours appear normal. Heart size is normal. Bones and chest wall: No suspicious bony lesions. Overlying soft tissues appear unremarkable. IMPRESSION: Limited portable chest examination, without a significant cardiopulmonary abnormality identified. Dictated by: Rajan Abbott M.D. on 10/02/2020 at 16:27 Approved by: Rajan Abbott M.D. on 10/02/2020 at 16:27 ECG Data Attestation: I personally reviewed and interpreted this ECG as follows: Prior ECG tracings: not available for review Interpretation: Sinus rhythm Ventricular rate of 93 Normal axis Normal QRS Normal QTC Nonspecific ST T wave changes MDM Narrative Medical decision making narrative: Patient with nonspecific changes on his EKG. Has a low risk heart score. Chest x-ray is unremarkable. Troponins negative x2. Given his presentation today I do have a higher suspicion that his symptoms are GI related rather than cardiac related. It appears he has had quite an extensive GI history in the past to include ulcers and esophageal spasms and surgeries. Was feeling better at the time of my evaluation. Will discharge home with follow-up with primary provider. Was given return precautions and follow-up instructions. He expressed understanding and agreement. Discharge Plan Departure Patient Disposition: Home Clinical Impression: Atypical chest pain, Abdominal pain Instructions: DI for Abdominal Pain-Adult, DI for Atypical Chest Pain Activity Restrictions/Additional Instructions: Continue all of your medications as directed. I do recommend that you keep all of your scheduled medical appointments. Contact your primary provider for a follow-up. Return to the emergency department for any new or worsening symptoms. Prescriptions: No Action ALBUTEROL SULFATE (Ventolin / Proventil) Qty: 0 RF: 0 Zolpidem Tartrate (Ambien) Qty: 0 RF: 0 ASPIRIN (Aspirin Low Dose) 325 mg PO Q DAY Qty: 0 RF: 0 LISINOPRIL (Zestril / Prinivil) 40 mg PO Q DAY Qty: 0 RF: 0 carvedilol [Coreg] 25 MG tablet Qty: 0 RF: 0 alprazolam [Xanax] 0.5 MG tablet Qty: 0 RF: 0 Referrals: Eder Rivera MD [Primary Care Provider] -
[2020-10-02 19:20] LABS: Creatine Kinase 86 U/L (55-170)
[2020-10-02 19:33] LABS: Troponin I < 0.012 ng/mL (0.01-0.034)
== END 2020-10-02 20:26 | disposition home or self-care (01) ==
PROVIDERS: Emergency Medicine; Emergency Provider Emergency Medicine; Family Provider Internal Medicine; PCP Internal Medicine
DX: R07.89 Other chest pain (principal); R10.9 Unspecified abdominal pain
CPT/HCPCS: 36415; 71045; 80053; 82550; 83690; 83880; 84484; 85025; 85610; 85730; 93005; 93010; 96365; 99284

== ENCOUNTER 2021-12-31 02:36 | Emergency (ER) | payer OTHER, SELFPAY ==
--- NOTE | 2021-12-31 02:43 | DI.RAD.S_ITS ---
PROCEDURE: XR CHEST 1V INDICATIONS: chest pain TECHNIQUE: One view of the chest was acquired. COMPARISON: [facility], CR, XR CHEST 1V, 10/02/2020, 17:10. FINDINGS: Surgical changes and devices: None. Lungs and pleura: Lungs are clear. No pleural effusions or pneumothorax. Mediastinum: Mediastinal contours appear normal. Heart size is normal. Bones and chest wall: No suspicious bony lesions. Overlying soft tissues appear unremarkable. IMPRESSION: No acute cardiopulmonary abnormality. Dictated by: Radames Mckay M.D. on 12/31/2021 at 7:39 Approved by: Radames Mckay M.D. on 12/31/2021 at 7:40
[2021-12-31 02:52] VITALS: BP 116/72; PULSE 79; RESP 20; TEMP 36.5; O2SAT 98; BMI 29.8
--- NOTE | 2021-12-31 02:52 | ED.GENADULT ---
HPI - General Adult General Chief complaint: Chest Pain Stated complaint: Chestpain/Pressure Time Seen by Provider: 12/31/21 02:42 Source: patient Mode of arrival: EMS Limitations: no limitations History of Present Illness HPI narrative: 56-year-old male here for evaluation of chest discomfort. He has had chest discomfort like this in the past. Has actually been going on for years. He has been seen in ERs for this. Has also seen GI. He is also seen a pain management physician. He states that on a daily basis he has discomfort at a 2/10 level but some days he will increase to a 7 to 8/10 level. He did take some hydrocodone earlier today without any improvement of the symptoms. Is not worse with palpation or movement. Not worse with breathing. No change in bowel habits. Did receive 3 nitroglycerin by EMS EN route without any improvement of symptoms. Related Data Home Medications Medication Instructions Recorded Confirmed ALBUTEROL SULFATE (Ventolin / ##0 05/11/10 Proventil) Zolpidem Tartrate (Ambien) ##0 05/11/10 ASPIRIN (Aspirin Low Dose) 325 mg PO Q DAY ##0 07/17/10 LISINOPRIL (Zestril / Prinivil) 40 mg PO Q DAY ##0 07/17/10 alprazolam 0.5 mg tablet (Xanax) ##0 02/01/17 carvedilol 25 mg tablet (Coreg) ##0 02/01/17 Allergies Allergy/AdvReac Type Severity Reaction Status Date / Time clarithromycin Allergy Mild Verified 10/02/20 17:06 [CLARITHROMYCIN] Review of Systems Review of Systems ROS Unobtainable: All systems reviewed & are unremarkable except as noted in HPI and below Patient History Medical History (Updated 12/31/21 @ 04:43 by Meet Mott DO) Anxiety Chest pain H. pylori infection Hypertension Social History Smoking Status: Former smoker Smoking Status: Former smoker tobacco type: cigars alcohol intake frequency: 0-2 drinks per day Substance Use Type: does not use Exam Initial Vital Signs Initial Vital Signs: Vital Signs Temperature 97.7 F 12/31/21 02:52 Pulse Rate 79 12/31/21 02:52 Respiratory Rate 20 12/31/21 02:52 Blood Pressure 116/72 12/31/21 02:52 Pulse Oximetry 98 12/31/21 02:52 Oxygen Delivery Method 12/31/21 02:52 Const General: cooperative and healthy appearing Nutritional Appearance: average body habitus HENMT Head: normal to inspection and normocephalic Resp Effort & Inspection: normal respiratory effort Auscultation: clear to auscultation bilaterally Cardio Rate: regular rate Rhythm: regular rhythm GI Inspection: normal to inspection Palpation: soft and No firm Skin General: no rashes or lesions noted Neuro General: patient alert, patient awake, patient oriented x3 and moves all extremities Speech: speech normal Extrem General: normal to inspection and capillary refill normal Psych Appearance: grossly normal and well kempt Scores HEART Score Heart Score history: Slightly Suspicious Heart Score EKG: Normal Heart Score Age: 45-64 years old Heart Score risk factors: 1-2 risk factors Heart Score troponin: < or = to normal limit Heart Score Total: 2 Course Orders Ordered: ED Orders 12/31/21 02:43 XR chest 1V Stat EKG-12 Lead Stat 12/31/21 02:45 Complete Blood Count AUTO DIFF Stat Comprehensive Metabolic Panel Stat Lipase Stat Troponin & CK Cardiac Panel Stat Discontinued Medications Lorazepam (Lorazepam 2 Mg/Ml Inj) 1 mg IV NOW ONE Stop: 12/31/21 02:53 Lorazepam (Lorazepam 0.5 Mg Tablet) 1 mg PO NOW ONE Stop: 12/31/21 03:01 Vital Signs Vital signs: Vital Signs - 8 hr 12/31/21 02:52 Temperature 97.7 F Pulse Rate 79 Respiratory Rate 20 Blood Pressure 116/72 Pulse Oximetry 98 Oxygen Delivery Method Room Air Medical Decision Making Lab Data Lab results reviewed: Yes I reviewed the patient's lab results. Result diagrams: 12/31/21 02:45 12/31/21 02:45 Labs: Lab Results 12/31/21 12/31/21 Range/Units 02:45 02:45 WBC 9.0 (4.5-11.0) X10^3/uL RBC 4.60 (4.5-5.9) X10^6/uL Hgb 13.3 L (13.5-17.5) g/dL Hct 39.4 L (41-53) % MCV 85.7 (80-100) fL MCH 28.8 (26-34) PG MCHC 33.6 (30-36) % RDW 14.3 (11.6-14.8) % Plt Count 224 (150-400) X10^3/uL Neut % (Auto) 52.0 (50-75) % Lymph % (Auto) 35.0 (25-40) % Divide % (Auto) 8.9 (3-14) % Eos % (Auto) 3.2 (2-4) % Baso % (Auto) 0.9 (0-2) % Neut # (Auto) 4700 (7600-5732) /uL Lymph # (Auto) 3100 (2279-1172) /uL Divide # (Auto) 800 (0-900) /uL Eos # (Auto) 300 (0-450) /uL Baso # (Auto) 100 (0-100) /uL Sodium 142 (137-145) mmol/L Potassium 3.8 (3.4-5.1) mmol/L Chloride 108 H (98-107) mmol/L Carbon Dioxide 27 (22-32) mmol/L BUN 13 (9-20) mg/dL Creatinine 0.99 (0.66-1.25) mg/dL Estimated GFR > 60 (>60) mL/min BUN/Creatinine Ratio 13.1 (6-22) Glucose 110 H (70-100) mg/dL Calcium 8.8 (8.4-10.2) mg/dL Total Bilirubin 0.4 (0.2-1.3) mg/dL AST 22 (17-59) IU/L ALT 19 (<50) IU/L Alkaline Phosphatase 79 (38-126) U/L Total Creatine Kinase 114 (55-170) U/L CK-MB (CK-2) 0.80 (<2.37) ng/mL CK-MB (CK-2) Rel Index 0.7 L (1.5-5.0) % Troponin I < 0.012 (0.01-0.034) ng/mL Total Protein 7.4 (6.3-8.2) g/dL Albumin 4.2 (3.5-5.0) g/dL Globulin 3.2 (1.7-4.1) g/dL Albumin/Globulin Ratio 1.3 (1.0-2.8) Lipase 122 (23-300) U/L Imaging Data Chest x-ray: Radiologist's Impression: No definite acute cardiopulmonary pathology ECG Data Attestation: I personally reviewed and interpreted this ECG as follows: Interpretation: Sinus rhythm Ventricular rate is 70 Normal axis Normal QRS Normal QTC No ST T wave changes MDM Narrative Medical decision making narrative: Patient has a negative troponin. Has a low risk heart score. EKG is unremarkable. Chest x-ray is unremarkable. Patient has had consistent symptoms for greater than 6 hours. Do have low suspicion for cardiac etiology. Unsure the specific cause. I did discuss this with him. Will discharge patient home to follow up with primary care doctor and follow-up with the GI doctor. He was given return precautions. He expressed understanding and agreement. Discharge Plan Departure Patient Disposition: Home Clinical Impression: Atypical chest pain Instructions: DI for Atypical Chest Pain Activity Restrictions/Additional Instructions: Continue to take all of your medications as directed. It is important that you follow-up with your primary doctor and also your GI provider. Return to the emergency department for any new or worsening symptoms. Prescriptions: No Action ALBUTEROL SULFATE (Ventolin / Proventil) Qty: 0 Zolpidem Tartrate (Ambien) Qty: 0 ASPIRIN (Aspirin Low Dose) 325 mg PO Q DAY Qty: 0 LISINOPRIL (Zestril / Prinivil) 40 mg PO Q DAY Qty: 0 carvedilol [Coreg] 25 MG tablet Qty: 0 alprazolam [Xanax] 0.5 MG tablet Qty: 0 Referrals: Eder Rivera MD [Primary Care Provider] -
[2021-12-31 02:59] LABS: Add Manual Diff / Slide Review NO; Basophils Absolute Auto 100 /uL (0-100); Basophils Percent Auto 0.9 % (0-2); Eosinophils Absolute Auto 300 /uL (0-450); Eosinophils Percent Auto 3.2 % (2-4); Hematocrit 39.4 % (41-53); Hemoglobin 13.3 g/dL (13.5-17.5); Lymphocytes Absolute Auto 3100 /uL (1100-4500); Mean Corpuscular HGB Conc 33.6 % (30-36); Mean Corpuscular Hemoglobin 28.8 PG (26-34); Mean Corpuscular Volume 85.7 fL (80-100); Monocytes Absolute Auto 800 /uL (0-900); Monocytes Percent Auto 8.9 % (3-14); Neutrophils Absolute Auto 4700 /uL (1500-7000); Platelet Count 224 X10^3/uL (150-400); Red Cell Distribution Width 14.3 % (11.6-14.8)
[2021-12-31 03:05] LABS: Alanine Aminotransferase 19 IU/L (<50); Albumin 4.2 g/dL (3.5-5.0); Albumin Globulin Ratio 1.3 (1.0-2.8); Alkaline Phosphatase 79 U/L (38-126); Aspartate Aminotransferase 22 IU/L (17-59); BUN Creatinine Ratio 13.1 (6-22); Bilirubin Total 0.4 mg/dL (0.2-1.3); Blood Urea Nitrogen 13 mg/dL (9-20); Calcium 8.8 mg/dL (8.4-10.2); Carbon Dioxide 27 mmol/L (22-32); Chloride 108 mmol/L (98-107); Creatine Kinase 114 U/L (55-170); Estimated Glomerular Filt Rate > 60 mL/min (>60); Globulin 3.2 g/dL (1.7-4.1); Glucose 110 mg/dL (70-100); HEMOLYSIS < 15 (0-50); Lipase 122 U/L (23-300); Potassium 3.8 mmol/L (3.4-5.1); Sodium 142 mmol/L (137-145); Total Protein 7.4 g/dL (6.3-8.2)
[2021-12-31 03:16] LABS: Troponin I < 0.012 ng/mL (0.01-0.034)
[2021-12-31 03:20] LABS: CKMB % Relative Index 0.7 % (1.5-5.0)
[2021-12-31 03:30] VITALS: BP 95/57
[2021-12-31 03:31] VITALS: PULSE 63; O2SAT 94
[2021-12-31 04:00] VITALS: BP 92/55; PULSE 56; RESP 18; O2SAT 95
[2021-12-31 04:30] VITALS: PULSE 60; RESP 14; O2SAT 97
[2021-12-31 04:31] VITALS: BP 109/58; PULSE 65; RESP 17; O2SAT 97
== END 2021-12-31 04:57 | disposition home or self-care (01) ==
PROVIDERS: Emergency Provider Emergency Medicine; Family Provider Internal Medicine; PCP Internal Medicine
DX: R07.89 Other chest pain (principal)
CPT/HCPCS: 71045; 80053; 82550; 82553; 83690; 84484; 85025; 93005; 93010; 99283; 99284

== ENCOUNTER → 2022-01-17 15:55 | Outpatient (CLI) | payer OTHER, SELFPAY ==
--- NOTE | 2022-01-17 15:57 | DI.CT.S_ITS ---
PROCEDURE: CT CHEST ABDOMEN WO CON INDICATIONS: RULE OUT MESH MOVEMENT TECHNIQUE: After the administration of oral contrast, 5 mm thick sections acquired from the pulmonary apices to the iliac crests. 5 mm thick coronal and sagittal reformats acquired, with additional 7 mm coronal MIP reformats through the lungs. For radiation dose reduction, the following was used: automated exposure control, adjustment of mA and/or kV according to patient size. COMPARISON: [facility], CT, CHEST/ABD/PEL WITH CONTRAST, 01/24/2015, 15:57. [facility], CT, CT CHEST WITH CONTRAST, 07/26/2021, 8:22. FINDINGS: Image quality: Excellent. CHEST: Lungs and pleura: No acute pulmonary opacities. No pleural effusions or pneumothorax. Central and peripheral airways are patent and normal in caliber. Mediastinum: Heart size is normal. No pericardial effusion. No mediastinal adenopathy by size criteria. No suspicious mediastinal mass. Thoracic aorta and central pulmonary arteries are normal in size. Esophagus is normal in caliber. There is morphology of a Jon fundoplication. The wrap is slipped above the level of the diaphragm and there is a small hiatal hernia, stable size compared to prior study from 07/26/21. Chest wall: No axillary or supraclavicular adenopathy by size criteria. Thyroid gland contains a subcentimeter left lower pole hypodensity. No chest wall abnormalities. ABDOMEN: Solid organs: Liver is normal in size. Gallbladder is surgically absent. Biliary system is nondilated. . Pancreas is normal in contours. Spleen is normal in size. No adrenal nodules. Both kidneys are normal in size, without hydronephrosis or nephrolithiasis. Left upper pole renal cyst. Peritoneum and bowel: Small and large bowel loops are normal in caliber and wall thickness. No free fluid or air. The appendix is normal caliber filled with high-density material. No periappendiceal inflammation. Nodes and vessels: There are small rounded right lower quadrant mesenteric lymph nodes. Retro aortic left renal vein. Aorta and inferior vena cava are normal caliber. No enlarged retroperitoneal or mesenteric adenopathy visible. Miscellaneous: There is a fat containing ventral midline hernia several cm above the umbilicus where there is also a trace umbilical hernia. No adjacent inflammation. IMPRESSION: 1. Small hiatal hernia and due to a slipped Jon fundoplication which is stable compared to prior study from earlier this year and mildly progressed in size compared to 01/24/15. 2. Mesh was not identified. 3. No acute process in the chest or abdomen. 4. Fat containing ventral hernias. Dictated by: Suzette Carrera M.D. on 01/17/2022 at 16:53 Approved by: Suzette Carrera M.D. on 01/17/2022 at 17:04
== END ==
PROVIDERS: Family Provider Internal Medicine; PCP Internal Medicine; Referring Provider Internal Medicine; Visit Provider Internal Medicine
DX: R07.9 Chest pain, unspecified (principal); T85.521A Displacement of esophageal anti-reflux device, initial encounter; K44.9 Diaphragmatic hernia without obstruction or gangrene; K43.9 Ventral hernia without obstruction or gangrene
CPT/HCPCS: 71250; 74150

== ENCOUNTER → 2022-08-14 11:00 | Outpatient (CLI) | payer OTHER, SELFPAY ==
[2022-08-14 13:43] LABS: Cortisol Random 11.6 ug/dL
[2022-08-23 14:36] LABS: Aldosterone/Renin Activity Rat 6.1 (0.0-30.0); Plama Renin, LC/MS/MS 1.711 ng/mL/hr (0.167-5.380)
== END ==
PROVIDERS: Family Provider Internal Medicine; PCP Internal Medicine; Referring Provider Nurse Practitioner; Visit Provider Nurse Practitioner
DX: I10 Essential (primary) hypertension (principal)
CPT/HCPCS: 36415; 82088; 82384; 82533; 84244

== ENCOUNTER → 2022-08-16 12:04 | Outpatient (CLI) | payer OTHER, SELFPAY ==
[2022-08-16 15:30] LABS: Collection Time Urine 24 Hours; Creatinine 24 Hour Urine 1453 mg/day (1000-2000); Creatinine Urine Random 264.2 mg/dL; Total Volume Urine 550 mL
[2022-08-21 08:29] LABS: Creatinine, 24 Urine 1324 mg/24 hr (1000-2000); Creatinine,Urine 240.8 mg/dL (Not Estab.); Dopamine, Ur 24hr 237 ug/24 hr (0-510); Epinephrine, U 24hr 9 ug/24 hr (0-20); Norepinephrine Ur 24hr 59 ug/24 hr (0-135)
== END ==
PROVIDERS: Family Provider Internal Medicine; PCP Internal Medicine; Referring Provider Nurse Practitioner; Visit Provider Nurse Practitioner
DX: I10 Essential (primary) hypertension (principal)
CPT/HCPCS: 82384; 82570

== ENCOUNTER 2022-10-26 15:13 | Emergency (ER) | payer OTHER, SELFPAY ==
[2022-10-26 15:33] VITALS: BP 184/95; PULSE 64; RESP 18; TEMP 36.4; O2SAT 98; BMI 30.1
[2022-10-26] MEDS: KETOROLAC 30 MG/ML VIAL 15 MG IV (15:59)
--- NOTE | 2022-10-26 16:05 | DI.CT.S_ITS ---
PROCEDURE: CT ABDOMEN PELVIS W CON INDICATIONS: Right lower quadrant, right flank pain, hematuria, appendix? TECHNIQUE: After the administration of intravenous contrast, axial sections acquired from the lung bases to the pubic symphysis. Coronal and sagittal reformats were performed. For radiation dose reduction, the following was used: automated exposure control, adjustment of mA and/or kV according to patient size. COMPARISON: [facility], CT, CT CHEST ABDOMEN WO [facility], 01/17/2022, 16:15. FINDINGS: Image quality: Excellent. Lung bases: Unremarkable. Heart: No significant findings. ABDOMEN: Liver: Unremarkable. Gallbladder: Previously resected Biliary ducts: Unremarkable. Pancreas: Unremarkable. Spleen: Unremarkable. Adrenal Glands: Unremarkable. Kidneys and Ureters: Unremarkable on the left but there is mild right-sided hydronephrosis and hydroureter to the far distal right ureter where a punctate 1 mm calculus can be seen just prior to the posterior bladder wall margin.. Stomach and Bowel: Stomach, small bowel loops, and colon are unremarkable. Peritoneum: No abnormal intraperitoneal fluid. No free air. Ventral Wall: No hernias. Abdominal Nodes: No retroperitoneal or mesenteric adenopathy by size criteria. Vessels: Aorta and inferior vena cava are normal in size. PELVIS: Pelvic Organs: Unremarkable. Bladder: Unremarkable. Pelvic Nodes: No enlarged lymph nodes. Miscellaneous: No hernias are seen. A normal or abnormal appendix could not be located but there are no secondary CT findings suggestive of hidden appendicitis at the right lower quadrant. Bones: Unremarkable. IMPRESSION: As noted above a normal or abnormal appendix could not be located but no secondary CT evidence of acute appendicitis is found. Rather, there is a definite punctate calculus within the far distal right ureter causing mild right hydronephrosis and hydroureter as the presumed cause for reported right lower quadrant pain. Dictated by: Conor Dumont M.D. on 10/26/2022 at 16:48 Approved by: Conor Dumont M.D. on 10/26/2022 at 16:51
--- NOTE | 2022-10-26 16:06 | ED.MALEGU ---
HPI - Male Genitourinary <Leticia Mares, [facility] - Last Filed: 10/26/22 17:28> General Chief complaint: Urogenital-Male Stated complaint: RLQ ABD pain Time Seen by Provider: 10/26/22 15:58 Source: patient Mode of arrival: Ambulatory History of Present Illness HPI Narrative: This is a 57-year-old gentleman who is otherwise healthy, presents to the emergency department today for right sided inguinal and lower quadrant pain that started last night. He states that this morning he was awakened at 05:40 with a sensation of needing to void which he states is not normal for him and since then he has been having urinary urgency with voiding every 20 minutes. He endorses right-sided low back pain which has gotten worse as the day has gone on. He states that it started in the right lower quadrant and has transferred to the back. He has a history of H pylori, hypertension, states that these symptoms are very abnormal for him. Denies nausea vomiting, diarrhea, stool changes fever chills. He states that the pain on his way here was 8 to 9/10. Pt's PCP is Dr Rivera. Patient has history of hiatal hernia secondary to slipped Rufino fundoplication, cholecystectomy, denies other abdominal medical history, denies history of nephrolithiasis. Patient had a CT chest and abdomen from 01/17/2022 which does not show evidence of nephrolithiasis patient had an appendix filled with high-density material with no periappendiceal inflammation but small rounded right lower quadrant mesenteric lymph nodes at that time. Related Data Home Medications Medication Instructions Recorded Confirmed ALBUTEROL SULFATE (Ventolin / ##0 05/11/10 Proventil) Zolpidem Tartrate (Ambien) ##0 05/11/10 ASPIRIN (Aspirin Low Dose) 325 mg PO Q DAY ##0 07/17/10 LISINOPRIL (Zestril / Prinivil) 40 mg PO Q DAY ##0 07/17/10 alprazolam 0.5 mg tablet (Xanax) ##0 02/01/17 carvedilol 25 mg tablet (Coreg) ##0 02/01/17 Previous Rx's Medication Instructions Recorded hydrocodone 5 mg-acetaminophen 325 1 tab PO TID PRN pain #10 tabs 10/26/22 mg tablet ibuprofen 600 mg tablet 600 mg PO Q6-8H PRN fever or pain 10/26/22 #30 tabs nitrofurantoin 100 mg PO BID 5 days #10 caps 10/26/22 monohydrate/macrocrystals 100 mg capsule (Macrobid) tamsulosin 0.4 mg capsule 0.4 mg PO BEDTIME 2 weeks #14 caps 10/26/22 Allergies Allergy/AdvReac Type Severity Reaction Status Date / Time clarithromycin Allergy Mild Swelling Verified 10/26/22 15:33 [CLARITHROMYCIN] of Lip/Tongue/Throat Review of Systems <SERA Goddard - Last Filed: 10/26/22 17:28> Review of Systems ROS Unobtainable: All systems reviewed & are unremarkable except as noted in HPI and below Patient History <SERA Goddard - Last Filed: 10/26/22 17:28> Medical History Anxiety Chest pain H. pylori infection Hypertension Social History Smoking Status: Former smoker Smoking Status: Former smoker tobacco type: cigars alcohol intake frequency: 0-2 drinks per day Substance Use Type: does not use Exam <SERA Goddard - Last Filed: 10/26/22 17:28> Narrative Exam Narrative: Reviewed vitals signs and nursing notes. General: Pleasant, sitting upright, patient appears to be in acute distress, feeling unwell, hunched over, complains of pain, is tender over the right lower quadrant, afebrile HEENT: symmetrical facial expressions, moist mucous membranes, neck is supple CV: regular rate and rhythm, warm extremities Respiratory: normal work of breathing, without tachypnea or hypoxia. GI: abdomen soft, nondistended, right-sided CVA tenderness, abdominal tenderness over the right lower quadrant, without guarding, is ambulatory but with pain with walking. MSK: moves all extremities, no weakness, normal tone, ambulatory without deficit Skin: brisk capillary refill, without rash or wound Neuro: clear speech and normal cognition, A&O x3, GCS 15, no focal motor or sensation deficits Initial Vital Signs Initial Vital Signs: Vital Signs Temperature 97.5 F L 10/26/22 15:33 Pulse Rate 64 10/26/22 15:33 Respiratory Rate 18 10/26/22 15:33 Blood Pressure 184/95 H 10/26/22 15:33 Pulse Oximetry 98 10/26/22 15:33 Oxygen Delivery Method Room Air 10/26/22 15:33 <Meet Mott DO - Last Filed: 10/26/22 16:48> Initial Vital Signs Initial Vital Signs: Vital Signs Temperature 97.5 F L 10/26/22 15:33 Pulse Rate 64 10/26/22 15:33 Respiratory Rate 18 10/26/22 15:33 Blood Pressure 184/95 H 10/26/22 15:33 Pulse Oximetry 98 10/26/22 15:33 Oxygen Delivery Method Room Air 10/26/22 15:33 Course <SERA Goddard - Last Filed: 10/26/22 17:28> Orders Ordered: ED Orders 10/26/22 15:52 CK [Creatine Kinase] Stat CRP [C-Reactive Protein Quant] Stat Complete Blood Count AUTO DIFF Stat Comprehensive Metabolic Panel Stat Lipase Stat Procalcitonin Stat Troponin I Stat 10/26/22 15:55 Urine Microscopic Stat 10/26/22 16:05 CT abdomen pelvis w con Stat 10/26/22 16:44 Urine Culture Stat Ondansetron HCl (Ondansetron 4 Mg/2 Ml Inj) 4 mg IV NOW PRN PRN Reason: Nausea And Vomiting Discontinued Medications Hydromorphone HCl (Hydromorphone 0.5 Mg Inj) 0.5 mg IV NOW ONE Stop: 10/26/22 16:06 Sodium Chloride (Normal Saline 0.9%) 1,000 mls @ 1,000 mls/hr IV BOLUS ONE Stop: 10/26/22 17:05 Last Admin: 10/26/22 16:40 Dose: 1,000 mls/hr Documented By: SAQIB Sodium Chloride (Normal Saline 0.9%) 1,000 mls @ 1,000 mls/hr IV BOLUS ONE Stop: 10/26/22 17:15 Ketorolac Tromethamine (Ketorolac 30 Mg/Ml Vial) 15 mg IV NOW ONE Stop: 10/26/22 15:48 Last Admin: 10/26/22 15:59 Dose: 15 mg Documented By: RL Lidocaine (Lidocaine Patch 1 Each Adh..Patch) 1 each TOP NOW ONE Stop: 10/26/22 16:17 Nitrofurantoin Macrocrystals (Nitrofurantoin Er 100 Mg Capsule) 100 mg PO NOW ONE Stop: 10/26/22 17:09 Ondansetron HCl (Ondansetron 4 Mg Odt) 4 mg SL NOW ONE Stop: 10/26/22 15:59 Phenazopyridine HCl (Phenazopyridine 100 Mg Tablet) 100 mg PO NOW ONE Stop: 10/26/22 17:09 Tamsulosin HCl (Tamsulosin 0.4 Mg Capsule) 0.4 mg PO NOW ONE Stop: 10/26/22 16:59 Vital Signs Vital signs: Vital Signs - 8 hr 10/26/22 15:33 10/26/22 16:22 10/26/22 16:22 Temperature 97.5 F L Pulse Rate 64 63 Respiratory Rate 18 Blood Pressure 184/95 H 156/85 H Pulse Oximetry 98 99 Oxygen Delivery Method Room Air 10/26/22 16:30 10/26/22 16:30 10/26/22 17:00 Temperature Pulse Rate 57 L Respiratory Rate Blood Pressure 147/77 H 142/73 H Pulse Oximetry 98 Oxygen Delivery Method 10/26/22 17:00 Temperature Pulse Rate 57 L Respiratory Rate Blood Pressure Pulse Oximetry 98 Oxygen Delivery Method <Meet Mott DO - Last Filed: 10/26/22 16:48> Orders Ordered: ED Orders 10/26/22 15:52 CK [Creatine Kinase] Stat CRP [C-Reactive Protein Quant] Stat Complete Blood Count AUTO DIFF Stat Comprehensive Metabolic Panel Stat Lipase Stat Procalcitonin Stat Troponin I Stat 10/26/22 15:55 Urine Microscopic Stat 10/26/22 16:05 CT abdomen pelvis w con Stat 10/26/22 16:44 Urine Culture Stat Ondansetron HCl (Ondansetron 4 Mg/2 Ml Inj) 4 mg IV NOW PRN PRN Reason: Nausea And Vomiting Discontinued Medications Hydromorphone HCl (Hydromorphone 0.5 Mg Inj) 0.5 mg IV NOW ONE Stop: 10/26/22 16:06 Sodium Chloride (Normal Saline 0.9%) 1,000 mls @ 1,000 mls/hr IV BOLUS ONE Stop: 10/26/22 17:05 Last Admin: 10/26/22 16:40 Dose: 1,000 mls/hr Documented By: SAQIB Sodium Chloride (Normal Saline 0.9%) 1,000 mls @ 1,000 mls/hr IV BOLUS ONE Stop: 10/26/22 17:15 Ketorolac Tromethamine (Ketorolac 30 Mg/Ml Vial) 15 mg IV NOW ONE Stop: 10/26/22 15:48 Last Admin: 10/26/22 15:59 Dose: 15 mg Documented By: RL Lidocaine (Lidocaine Patch 1 Each Adh..Patch) 1 each TOP NOW ONE Stop: 10/26/22 16:17 Nitrofurantoin Macrocrystals (Nitrofurantoin Er 100 Mg Capsule) 100 mg PO NOW ONE Stop: 10/26/22 17:09 Ondansetron HCl (Ondansetron 4 Mg Odt) 4 mg SL NOW ONE Stop: 10/26/22 15:59 Phenazopyridine HCl (Phenazopyridine 100 Mg Tablet) 100 mg PO NOW ONE Stop: 10/26/22 17:09 Tamsulosin HCl (Tamsulosin 0.4 Mg Capsule) 0.4 mg PO NOW ONE Stop: 10/26/22 16:59 Vital Signs Vital signs: Vital Signs - 8 hr 10/26/22 15:33 10/26/22 16:22 10/26/22 16:22 Temperature 97.5 F L Pulse Rate 64 63 Respiratory Rate 18 Blood Pressure 184/95 H 156/85 H Pulse Oximetry 98 99 Oxygen Delivery Method Room Air 10/26/22 16:30 10/26/22 16:30 10/26/22 17:00 Temperature Pulse Rate 57 L Respiratory Rate Blood Pressure 147/77 H 142/73 H Pulse Oximetry 98 Oxygen Delivery Method 10/26/22 17:00 Temperature Pulse Rate 57 L Respiratory Rate Blood Pressure Pulse Oximetry 98 Oxygen Delivery Method MDM - Male Genitourinary <WINSTON GoddardP - Last Filed: 10/26/22 17:28> Lab Data 10/26/22 15:52 10/26/22 15:52 Labs: Lab Results 10/26/22 10/26/22 10/26/22 Range/Units 15:52 15:52 15:52 WBC 8.1 (4.5-11.0) X10^3/uL RBC 4.70 (4.5-5.9) X10^6/uL Hgb 13.9 (13.5-17.5) g/dL Hct 39.9 L (41-53) % MCV 84.9 (80-100) fL MCH 29.7 (26-34) PG MCHC 34.9 (30-36) % RDW 14.6 (11.6-14.8) % Plt Count 204 (150-400) X10^3/uL Neut % (Auto) 62.5 (50-75) % Lymph % (Auto) 24.8 L (25-40) % Miller % (Auto) 8.1 (3-14) % Eos % (Auto) 4.0 (2-4) % Baso % (Auto) 0.6 (0-2) % Neut # (Auto) 5100 (6711-6572) /uL Lymph # (Auto) 2000 (4805-3046) /uL Miller # (Auto) 700 (0-900) /uL Eos # (Auto) 300 (0-450) /uL Baso # (Auto) 100 (0-100) /uL Sodium 143 (137-145) mmol/L Potassium 3.9 (3.4-5.1) mmol/L Chloride 106 (98-107) mmol/L Carbon Dioxide 28 (22-32) mmol/L BUN 14 (9-20) mg/dL Creatinine 0.90 (0.66-1.25) mg/dL Estimated GFR > 60 (>60) mL/min BUN/Creatinine Ratio 15.6 (6-22) Glucose 101 H (70-100) mg/dL Calcium 8.8 (8.4-10.2) mg/dL Total Bilirubin 0.6 (0.2-1.3) mg/dL AST 27 (17-59) IU/L ALT 27 (<50) IU/L Alkaline Phosphatase 65 (38-126) U/L Total Creatine Kinase (55-170) U/L Troponin I (0.01-0.034) ng/mL C-Reactive Protein < 0.5 (<1.0) mg/dL Total Protein 7.7 (6.3-8.2) g/dL Albumin 4.1 (3.5-5.0) g/dL Globulin 3.6 (1.7-4.1) g/dL Albumin/Globulin Ratio 1.1 (1.0-2.8) Lipase 92 (23-300) U/L Procalcitonin 0.06 (<0.5) ng/mL Urine RBC (0-5/HPF) Urine WBC (0-5/HPF) Ur Squamous Epith Cells (0-5/HPF) Urine Bacteria (None) Ur Culture Indicated? 10/26/22 10/26/22 Range/Units 15:52 15:55 WBC (4.5-11.0) X10^3/uL RBC (4.5-5.9) X10^6/uL Hgb (13.5-17.5) g/dL Hct (41-53) % MCV (80-100) fL MCH (26-34) PG MCHC (30-36) % RDW (11.6-14.8) % Plt Count (150-400) X10^3/uL Neut % (Auto) (50-75) % Lymph % (Auto) (25-40) % Miller % (Auto) (3-14) % Eos % (Auto) (2-4) % Baso % (Auto) (0-2) % Neut # (Auto) (3430-8276) /uL Lymph # (Auto) (7461-9081) /uL Miller # (Auto) (0-900) /uL Eos # (Auto) (0-450) /uL Baso # (Auto) (0-100) /uL Sodium (137-145) mmol/L Potassium (3.4-5.1) mmol/L Chloride (98-107) mmol/L Carbon Dioxide (22-32) mmol/L BUN (9-20) mg/dL Creatinine (0.66-1.25) mg/dL Estimated GFR (>60) mL/min BUN/Creatinine Ratio (6-22) Glucose (70-100) mg/dL Calcium (8.4-10.2) mg/dL Total Bilirubin (0.2-1.3) mg/dL AST (17-59) IU/L ALT (<50) IU/L Alkaline Phosphatase (38-126) U/L Total Creatine Kinase 95 (55-170) U/L Troponin I < 0.012 (0.01-0.034) ng/mL C-Reactive Protein (<1.0) mg/dL Total Protein (6.3-8.2) g/dL Albumin (3.5-5.0) g/dL Globulin (1.7-4.1) g/dL Albumin/Globulin Ratio (1.0-2.8) Lipase (23-300) U/L Procalcitonin (<0.5) ng/mL Urine RBC >100/hpf H (0-5/HPF) Urine WBC 1-5/hpf (0-5/HPF) Ur Squamous Epith Cells 1-5 /hpf (0-5/HPF) Urine Bacteria Few (2-10) H (None) Ur Culture Indicated? Cult not indicated Urine Dip Bedside Urine Glucose Negative Bedside Urine Bilirubin - Negative Bedside Urine Ketone - Negative Urine Specific [place] 1.020 Bedside Urine Occult Blood +++ Bedside Urine pH 6.0 Bedside Urine Protein - Negative Bedside Urine Urobilinogen - Negative Bedside Urine Nitrite - Negative Bedside Urine Leukocytes - Negative Esterase Imaging Data CT scan - abdomen/pelvis: Radiologist's Impression: PROCEDURE:? CT ABDOMEN PELVIS W CON ? INDICATIONS:? Right lower quadrant, right flank pain, hematuria, appendix? ? TECHNIQUE:? After the administration of intravenous contrast, axial sections acquired from the lung bases to the pubic symphysis.? Coronal and sagittal reformats were performed.? For radiation dose reduction, the following was used:? automated exposure control, adjustment of mA and/or kV according to patient size.? ? COMPARISON:? [facility], CT, CT CHEST ABDOMEN WO CON, 01/17/2022, 16:15. ? FINDINGS:? Image quality:? Excellent.? ? Lung bases:? Unremarkable. Heart:? No significant findings. ? ABDOMEN: Liver:? Unremarkable.? ? Gallbladder:? Previously resected? ? Biliary ducts:? Unremarkable.? ? Pancreas:? Unremarkable.? ? Spleen:? Unremarkable.? ? Adrenal Glands:? Unremarkable.? ? Kidneys and Ureters:? Unremarkable on the left but there is mild right-sided hydronephrosis and hydroureter to the far distal right ureter where a punctate 1 mm calculus can be seen just prior to the posterior bladder wall margin..? ? ? Stomach and Bowel:? Stomach, small bowel loops, and colon are unremarkable.? Peritoneum:? No abnormal intraperitoneal fluid.? No free air.? ? Ventral Wall: ? No hernias.? Abdominal Nodes:? No retroperitoneal or mesenteric adenopathy by size criteria.? Vessels:? Aorta and inferior vena cava are normal in size.? ? PELVIS: Pelvic Organs:? Unremarkable.? ? Bladder:? Unremarkable.? ? Pelvic Nodes: No enlarged lymph nodes.? Miscellaneous: No hernias are seen.? A normal or abnormal appendix could not be located but there are no secondary CT findings suggestive of hidden appendicitis at the right lower quadrant. ? ? ? Bones:? Unremarkable.? IMPRESSION:? As noted above a normal or abnormal appendix could not be located but no secondary CT evidence of acute appendicitis is found.? Rather, there is a definite punctate calculus within the far distal right ureter causing mild right hydronephrosis and hydroureter as the presumed cause for reported right lower quadrant pain. ? ? Dictated by: Conor Dumont M.D. on 10/26/2022 at 16:48 ? ? Approved by: Conor Dumont M.D. on 10/26/2022 at 16:51 ? MDM Narrative Medical decision making narrative: Chief Complaint: Right lower quadrant and right-sided flank pain Independent historian: Patient Multiple etiologies for patient's symptoms considered including, but not limited to: Appendicitis, diverticulitis, obstructive uropathy, urinary tract infection, urinary retention, nephrolithiasis, BPH, prostatitis, AAA, ACS, pyelonephritis, ascending cholangitis I have independently reviewed the patient's vital signs and nursing notes as well as prior records if available. Pertinent records include: No pertinent records for review other than patient's lab work from 08/14/2022 My interpretation of lab studies: Patient's urine dip is positive for blood, sent for microscopy which showed few bacteria with over 100 of blood, no leukocytosis on CBC or anemia, lab work is consistent with his prior lab work from January 12, chemistry with normal creatinine consistent with his baseline at 0.9, total CK is normal, no elevation of his CRP, less than 0.5, no elevation of other liver enzymes, lipase is normal 92 My interpretation of imaging: Ordered CT abdomen and pelvis with contrast to evaluate right lower quadrant pain and for evidence of obstructive uropathy, my interpretation shows mild inflammation of the appendix with air and fluid in the right lower quadrant, or no abdominal aneurysm or moderate amount of stool evident, with bladder inflammation Consultations: Patient was given Flomax Toradol, he declined the pain pill as he was driving home, he understands to stay hydrated, follow up with Urology or his primary care provider, strain his urine, and was treated with 5 days of Macrobid today. He is encouraged to use MiraLax to soften his stool to help with his pain, ibuprofen, pain pills as needed and he reports that he feels better already. Social considerations that may affect disposition: none Questions are addressed and there is agreement with the plan and for follow-up. I consulted with the ED attending physician Dr. Mott as needed for higher level of care considerations and they were available for discussion and recommendations regarding plan of care and diagnostic testing. Patient is appropriate for outpatient management. <Meet Mott, DO - Last Filed: 10/26/22 16:48> Lab Data Labs: Lab Results 10/26/22 10/26/22 10/26/22 Range/Units 15:52 15:52 15:52 WBC 8.1 (4.5-11.0) X10^3/uL RBC 4.70 (4.5-5.9) X10^6/uL Hgb 13.9 (13.5-17.5) g/dL Hct 39.9 L (41-53) % MCV 84.9 (80-100) fL MCH 29.7 (26-34) PG MCHC 34.9 (30-36) % RDW 14.6 (11.6-14.8) % Plt Count 204 (150-400) X10^3/uL Neut % (Auto) 62.5 (50-75) % Lymph % (Auto) 24.8 L (25-40) % Miller % (Auto) 8.1 (3-14) % Eos % (Auto) 4.0 (2-4) % Baso % (Auto) 0.6 (0-2) % Neut # (Auto) 5100 (3448-4289) /uL Lymph # (Auto) 2000 (1315-6306) /uL Miller # (Auto) 700 (0-900) /uL Eos # (Auto) 300 (0-450) /uL Baso # (Auto) 100 (0-100) /uL Sodium 143 (137-145) mmol/L Potassium 3.9 (3.4-5.1) mmol/L Chloride 106 (98-107) mmol/L Carbon Dioxide 28 (22-32) mmol/L BUN 14 (9-20) mg/dL Creatinine 0.90 (0.66-1.25) mg/dL Estimated GFR > 60 (>60) mL/min BUN/Creatinine Ratio 15.6 (6-22) Glucose 101 H (70-100) mg/dL Calcium 8.8 (8.4-10.2) mg/dL Total Bilirubin 0.6 (0.2-1.3) mg/dL AST 27 (17-59) IU/L ALT 27 (<50) IU/L Alkaline Phosphatase 65 (38-126) U/L Total Creatine Kinase (55-170) U/L Troponin I (0.01-0.034) ng/mL C-Reactive Protein < 0.5 (<1.0) mg/dL Total Protein 7.7 (6.3-8.2) g/dL Albumin 4.1 (3.5-5.0) g/dL Globulin 3.6 (1.7-4.1) g/dL Albumin/Globulin Ratio 1.1 (1.0-2.8) Lipase 92 (23-300) U/L Procalcitonin 0.06 (<0.5) ng/mL Urine RBC (0-5/HPF) Urine WBC (0-5/HPF) Ur Squamous Epith Cells (0-5/HPF) Urine Bacteria (None) Ur Culture Indicated? 10/26/22 10/26/22 Range/Units 15:52 15:55 WBC (4.5-11.0) X10^3/uL RBC (4.5-5.9) X10^6/uL Hgb (13.5-17.5) g/dL Hct (41-53) % MCV (80-100) fL MCH (26-34) PG MCHC (30-36) % RDW (11.6-14.8) % Plt Count (150-400) X10^3/uL Neut % (Auto) (50-75) % Lymph % (Auto) (25-40) % Miller % (Auto) (3-14) % Eos % (Auto) (2-4) % Baso % (Auto) (0-2) % Neut # (Auto) (3176-8492) /uL Lymph # (Auto) (5807-1377) /uL Miller # (Auto) (0-900) /uL Eos # (Auto) (0-450) /uL Baso # (Auto) (0-100) /uL Sodium (137-145) mmol/L Potassium (3.4-5.1) mmol/L Chloride (98-107) mmol/L Carbon Dioxide (22-32) mmol/L BUN (9-20) mg/dL Creatinine (0.66-1.25) mg/dL Estimated GFR (>60) mL/min BUN/Creatinine Ratio (6-22) Glucose (70-100) mg/dL Calcium (8.4-10.2) mg/dL Total Bilirubin (0.2-1.3) mg/dL AST (17-59) IU/L ALT (<50) IU/L Alkaline Phosphatase (38-126) U/L Total Creatine Kinase 95 (55-170) U/L Troponin I < 0.012 (0.01-0.034) ng/mL C-Reactive Protein (<1.0) mg/dL Total Protein (6.3-8.2) g/dL Albumin (3.5-5.0) g/dL Globulin (1.7-4.1) g/dL Albumin/Globulin Ratio (1.0-2.8) Lipase (23-300) U/L Procalcitonin (<0.5) ng/mL Urine RBC >100/hpf H (0-5/HPF) Urine WBC 1-5/hpf (0-5/HPF) Ur Squamous Epith Cells 1-5 /hpf (0-5/HPF) Urine Bacteria Few (2-10) H (None) Ur Culture Indicated? Cult not indicated Urine Dip Bedside Urine Glucose Negative Bedside Urine Bilirubin - Negative Bedside Urine Ketone - Negative Urine Specific [place] 1.020 Bedside Urine Occult Blood +++ Bedside Urine pH 6.0 Bedside Urine Protein - Negative Bedside Urine Urobilinogen - Negative Bedside Urine Nitrite - Negative Bedside Urine Leukocytes - Negative Esterase Discharge Plan Departure Patient Disposition: Home Clinical Impression: Hydronephrosis with ureteral calculus, Hematuria Instructions: DI for Kidney Stones, DI for Hematuria, Tamsulosin Activity Restrictions/Additional Instructions: *You have been diagnosed with a very tiny stone but it is in the most painful area ureteropelvic junction on the right side. This should pass after ibuprofen/anti-inflammatories, hydration, and Flomax. Please strain your urine until you pass it, it is 1 mm, the pain should improve almost immediately, it does not tend to sit in this area very long. I have given you a antibiotic to prevent bladder infection as there is some bacteria in your urine., this is twice a day for the next 5 days. Please follow-up with urology if you have ongoing pain or any complications from this. Follow-up with your primary care provider otherwise. Please have your prostate evaluated at your next visit, the bacteria could come from your prostate but I do not think you have prostatitis today. I have given you some pain pills, please consider using MiraLax even if you are not constipated just so you have soft stool because with a moderate amount of stool in her colon, this causes worsening ureteral pain and you would benefit from MiraLax as it will bring moisture in to your bowel. *What to do: *Please continue to take your regular medications as directed. [ x] New medication prescriptions sent to your pharmacy: [[facility] ] [ ] New medication written as a paper prescription [ ] No new medications given *Please call and schedule follow up with your primary care provider in 2-3 days, at least for an update. Let them know you were seen in the Emergency Department for the above problem. We will electronically transmit a record of today's note if your PCP or specialist is in our system. *If you do not have a primary care provider please contact [phone] to establish care with one of the [facility] primary care providers. *Return to the Emergency Department for worsening symptoms, inability to keep liquids down, fever greater than 101F, chills, or other concerning symptom. Prescriptions: New nitrofurantoin monohyd/m-cryst [Macrobid] 100 mg capsule 100 mg PO BID 5 Days Qty: 10 0RF Rx Instructions: must administer with a meal/food tamsulosin 0.4 mg capsule 0.4 mg PO BEDTIME 14 Days Qty: 14 0RF hydrocodone-acetaminophen 5-325 mg tablet 1 tab PO TID PRN (Reason: pain) Qty: 10 0RF ibuprofen 600 mg tablet 600 mg PO Q6-8H PRN (Reason: fever or pain) Qty: 30 0RF No Action ALBUTEROL SULFATE (Ventolin / Proventil) Qty: 0 Zolpidem Tartrate (Ambien) Qty: 0 ASPIRIN (Aspirin Low Dose) 325 mg PO Q DAY Qty: 0 LISINOPRIL (Zestril / Prinivil) 40 mg PO Q DAY Qty: 0 carvedilol [Coreg] 25 MG tablet Qty: 0 alprazolam [Xanax] 0.5 MG tablet Qty: 0 Referrals: Eder Rivera MD [Primary Care Provider] - Mi Roldan MD [Physician] - Stand Alone Forms: Patient Portal/API <Meet Mott DO - Last Filed: 10/26/22 16:48> Cosign ED Attending Cosignature Attestation: Dr Mott Co-Sign Statement: I was available for consultation during this patient's emergency department visit. This chart is signed by myself for administrative purposes only. I did not have direct contact with this patient during this visit. They were seen independently by the APC.
[2022-10-26 16:08] LABS: Add Manual Diff / Slide Review NO; Basophils Absolute Auto 100 /uL (0-100); Basophils Percent Auto 0.6 % (0-2); Eosinophils Absolute Auto 300 /uL (0-450); Hematocrit 39.9 % (41-53); Hemoglobin 13.9 g/dL (13.5-17.5); Lymphocytes Absolute Auto 2000 /uL (1100-4500); Lymphocytes Percent Auto 24.8 % (25-40); Mean Corpuscular HGB Conc 34.9 % (30-36); Mean Corpuscular Hemoglobin 29.7 PG (26-34); Mean Corpuscular Volume 84.9 fL (80-100); Monocytes Absolute Auto 700 /uL (0-900); Monocytes Percent Auto 8.1 % (3-14); Neutrophils Absolute Auto 5100 /uL (1500-7000); Neutrophils Percent Auto 62.5 % (50-75); Platelet Count 204 X10^3/uL (150-400); Red Cell Distribution Width 14.6 % (11.6-14.8); White Blood Cell Count 8.1 X10^3/uL (4.5-11.0)
[2022-10-26 16:18] LABS: Alanine Aminotransferase 27 IU/L (<50); Albumin 4.1 g/dL (3.5-5.0); Albumin Globulin Ratio 1.1 (1.0-2.8); Alkaline Phosphatase 65 U/L (38-126); Aspartate Aminotransferase 27 IU/L (17-59); BUN Creatinine Ratio 15.6 (6-22); Bilirubin Total 0.6 mg/dL (0.2-1.3); Blood Urea Nitrogen 14 mg/dL (9-20); Calcium 8.8 mg/dL (8.4-10.2); Carbon Dioxide 28 mmol/L (22-32); Chloride 106 mmol/L (98-107); Estimated Glomerular Filt Rate > 60 mL/min (>60); Globulin 3.6 g/dL (1.7-4.1); Glucose 101 mg/dL (70-100); HEMOLYSIS 19 (0-50); Lipase 92 U/L (23-300); Potassium 3.9 mmol/L (3.4-5.1); Sodium 143 mmol/L (137-145); Total Protein 7.7 g/dL (6.3-8.2)
[2022-10-26 16:22] VITALS: BP 156/85; PULSE 63; O2SAT 99
[2022-10-26 16:29] LABS: Creatine Kinase 95 U/L (55-170)
[2022-10-26 16:30] VITALS: BP 147/77; PULSE 57; O2SAT 98
[2022-10-26 16:33] LABS: C-Reactive Protein Quant < 0.5 mg/dL (<1.0)
[2022-10-26 16:38] LABS: Bacteria Urine Few (2-10); Culture Indicated Urine Cult Not Indicated; RBC Urine >100/HPF (0-5/HPF); Squamous Epithelial Cell Urine 1-5 /HPF (0-5/HPF); WBC Urine 1-5/HPF (0-5/HPF)
[2022-10-26] MEDS: SODIUM CHLORIDE 0.9% 1,000 ML 1000 ML IV (16:40)
[2022-10-26 16:41] LABS: Troponin I < 0.012 ng/mL (0.01-0.034)
[2022-10-26 16:48] LABS: Procalcitonin 0.06 ng/mL (<0.5)
[2022-10-26 17:00] VITALS: BP 142/73; PULSE 57; O2SAT 98
== END 2022-10-26 17:26 | disposition home or self-care (01) ==
PROVIDERS: Emergency Provider Nurse Practitioner Critical Care Medicine; Family Provider Internal Medicine; PCP Internal Medicine
DX: N13.2 Hydronephrosis with renal and ureteral calculous obstruction (principal); R31.9 Hematuria, unspecified; Z79.899 Other long term (current) drug therapy
CPT/HCPCS: 36415; 74177; 80053; 81003; 81015; 82550; 83690; 84145; 84484; 85025; 86140; 87086; 96374; 99284; J1885

== ENCOUNTER → 2023-01-08 14:09 | Outpatient (CLI) | payer OTHER, SELFPAY ==
--- NOTE | 2023-01-08 14:12 | DI.RAD.S_ITS ---
PROCEDURE: XR LUMBAR SPINE MIN 4V INDICATIONS: BACK PAIN TECHNIQUE: 5 views of the lumbar spine were acquired, including bilateral oblique views. COMPARISON: [facility], CT, CT ABDOMEN PELVIS W CON, 10/26/2022, 16:11. [facility], CR, XR LUMBAR SPINE 2-3V, 05/20/2020, 15:41. FINDINGS: Bones: 5 nonrib-bearing vertebrae are present. There is normal bony alignment. No acute vertebral body compression fractures. No suspicious bony lesions. Mild multilevel lumbar spondylosis with degenerative endplate changes, disc space loss, and endplate osteophyte formation. Soft tissues: Overlying bowel gas pattern is normal. No suspicious soft tissue calcifications. Oblique images: No pars defects. IMPRESSION: Lumbar spine without acute fracture or malalignment. Multilevel lumbar spondylosis. Dictated by: Rivera Lord M.D. on 01/08/2023 at 13:46 Approved by: Rivera Lord M.D. on 01/08/2023 at 13:49
== END ==
PROVIDERS: Family Provider Internal Medicine; PCP Internal Medicine; Referring Provider Physical Medicine & Rehabilitation; Visit Provider Physical Medicine & Rehabilitation
DX: M54.9 Dorsalgia, unspecified (principal); M47.816 Spondylosis without myelopathy or radiculopathy, lumbar region
CPT/HCPCS: 71250; 72110

== ENCOUNTER 2023-01-15 05:34 | Emergency (ER) | payer OTHER, SELFPAY ==
[2023-01-15 05:39] VITALS: BP 142/80; PULSE 60; RESP 16; TEMP 36.3; O2SAT 97; BMI 30.5
--- NOTE | 2023-01-15 06:03 | ED_ITS ---
HPI - Back Pain/Injury <Keith Whitehead, - Last Filed: 01/16/23 01:32> General Chief Complaint: Back Pain/Injury Stated Complaint: lower back pain Time Seen by Provider: 01/15/23 05:36 Source: patient History of Present Illness HPI Narrative: 58-year-old male with history of progressively worsening low back pain relating to an L and I claim from June of 2020. He has progressively worsening pain and radicular symptoms and has been seen by Dr. Mccarthy who ordered an MRI in a few weeks. He takes anti-inflammatories and gabapentin without significant change. He has hydrocodone which does not help much. He has been seen by physical therapy as well. Per Dr. Mccarthy's note from last week his symptoms are most consistent with lumbar facet arthropathy at L4 and L5 which was demonstrated on an MRI from 2 years ago. He was just started on a Medrol Dosepak. Recently x-ray was performed noting multilevel lumbar spondylosis. His penis severe in his lumbar region and most notable going into his left hip. He has numbness extending down his left leg and in the toes of both feet. He denies loss of control of bowel or bladder. He states feels like his left leg maybe slightly weak but it is hard to tell if it is just significantly painful or not. He denies any new trauma or injury. He was seen and evaluated at an outside facility yesterday and encouraged to present to the emergency department for evaluation and likely MRI Related Data Home Medications Medication Instructions Recorded Confirmed ALBUTEROL SULFATE (Ventolin / ##0 05/11/10 Proventil) ASPIRIN (Aspirin Low Dose) 325 mg PO Q DAY ##0 07/17/10 alprazolam 0.5 mg tablet (Xanax) ##0 02/01/17 carvedilol 25 mg tablet (Coreg) ##0 02/01/17 acetaminophen 500 mg tablet 500 mg PO Q4-6H PRN pain 01/09/23 amlodipine 5 mg tablet 5 mg PO DAILY 01/09/23 cholestyramine-aspartame 4 gram 4 g PO .PRN 01/09/23 oral powder for susp in a packet (Prevalite) duloxetine 60 mg capsule,delayed 60 mg PO DAILY 01/09/23 release gabapentin 300 mg capsule 300 mg PO 3XD 01/09/23 hydrochlorothiazide 12.5 mg tablet 12.5 mg PO DAILY 01/09/23 lisinopril 20 mg tablet 20 mg PO BID 01/09/23 oxycodone-acetaminophen 5 mg-325 1 tab PO 3XD PRN 01/09/23 mg tablet zolpidem 10 mg tablet 10 mg PO ONCE PM PRN 01/09/23 Previous Rx's Medication Instructions Recorded hydrocodone 5 mg-acetaminophen 325 1 tab PO TID PRN pain #10 tabs 10/26/22 mg tablet ibuprofen 600 mg tablet 600 mg PO Q6-8H PRN fever or pain 10/26/22 #30 tabs methylprednisolone 4 mg tablets in See Rx Instructions PO PER PKG DIR 01/09/23 a dose pack (Medrol ([place]er)) radiculopathy #21 ea Allergies Allergy/AdvReac Type Severity Reaction Status Date / Time clarithromycin Allergy Mild Swelling Verified 01/15/23 05:48 [CLARITHROMYCIN] of Lip/Tongue/Throat Review of Systems <Keith Whitehead DO - Last Filed: 01/16/23 01:32> Review of Systems Narrative: GENERAL: Denies chills, fatigue, malaise, fever, sweats. HEENT: Denies sinus pain, ear pain, sore throat, difficulty swallowing, dizziness. RESPIRATORY: Denies dyspnea, cough, wheezing, hemoptysis, sputum. CARDIOVASCULAR: Denies chest pain, palpitations, orthopnea, edema, GASTROINTESTINAL: Denies nausea, vomiting, abdominal pain, diarrhea, constipation, melena. : Denies dysuria, frequency, incontinence, hematuria, urinary retention. MUSCULOSKELETAL: See HPI SKIN: Denies rash, skin lesions, or other NEUROLOGIC: See HPI PSYCHIATRIC: No concerning psychosocial issues. 12 point review of systems is negative except for those stated above Patient History <Keith Whitehead DO - Last Filed: 01/16/23 01:32> Medical History Anxiety Cardiac arrhythmia Chest pain Chronic pain syndrome Facet arthropathy, lumbar H. pylori infection Hypertension Spondylosis of lumbosacral region without myelopathy or radiculopathy Social History Smoking Status: Never smoker Smoking Status: Never smoker tobacco type: cigars alcohol intake frequency: holidays/special occasions only Substance Use Type: does not use Exam <Keith Whitehead DO - Last Filed: 01/16/23 01:32> Narrative Exam Narrative: GENERAL: [58] year old patient appears stated age. Well-developed patient, in obviously uncomfortable, walking under his own power but with antalgic gait HEAD: Atraumatic. Normocephalic. EYES: Pupils equal round and reactive. Extraocular motions intact. No scleral icterus. No injection or drainage. ENT: Nose without bleeding, purulent drainage. Throat without erythema, tonsillar hypertrophy or exudate. Airway patent. NECK: Trachea midline. Non tender CARDIOVASCULAR: Regular rate and rhythm without murmurs, gallops, or rubs. RESPIRATORY: Clear to auscultation. Breath sounds equal bilaterally. No wheezes, rales, or rhonchi. GASTROINTESTINAL: Abdomen soft, non-tender, nondistended. EXTREMITIES: No edema or joint tenderness. BACK: tempering kiln tender but free of any obvious external abnormalities. Patient exam notes decreased range of motion and muscle spasm, but no CVA tenderness, or vertebral point tenderness. There are no symptoms of cauda equina such as s addle anesthesia, or measurable muscle weakness as both lower extremities have 5/5 strength. He does have decreased patellar reflexes bilaterally at 1+. NEURO: AOx3. SKIN: No rash or erythema of visible areas Initial Vital Signs Initial Vital Signs: Vital Signs Temperature 97.4 F L 01/15/23 05:39 Pulse Rate 60 01/15/23 05:39 Respiratory Rate 16 01/15/23 05:39 Blood Pressure 142/80 H 01/15/23 05:39 Pulse Oximetry 97 01/15/23 05:39 Oxygen Delivery Method Room Air 01/15/23 05:39 <Marc Flores MD - Last Filed: 01/16/23 06:53> Initial Vital Signs Initial Vital Signs: Vital Signs Temperature 97.4 F L 01/15/23 05:39 Pulse Rate 60 01/15/23 05:39 Respiratory Rate 16 01/15/23 05:39 Blood Pressure 142/80 H 01/15/23 05:39 Pulse Oximetry 97 01/15/23 05:39 Oxygen Delivery Method Room Air 01/15/23 05:39 Course <Keith Whitehead DO - Last Filed: 01/16/23 01:32> Orders Ordered: ED Orders 01/15/23 06:24 MR lumbar spine wo con Stat Vital Signs Vital signs: Vital Signs - 8 hr 01/15/23 05:39 Temperature 97.4 F L Pulse Rate 60 Respiratory Rate 16 Blood Pressure 142/80 H Pulse Oximetry 97 Oxygen Delivery Method Room Air <Marc Flores MD - Last Filed: 01/16/23 06:53> Orders Ordered: ED Orders 01/15/23 06:24 MR lumbar spine wo con Stat Vital Signs Vital signs: Vital Signs - 8 hr 01/15/23 05:39 Temperature 97.4 F L Pulse Rate 60 Respiratory Rate 16 Blood Pressure 142/80 H Pulse Oximetry 97 Oxygen Delivery Method Room Air <Marc Flores MD - Last Filed: 01/16/23 06:53> Imaging Data MRI spine: Radiologist's Impression: [address] [address] Magnetic Resonance Report Signed Patient: Wali Eric MR#: [id number] : 1965 Acct:[id number] Age/Sex: 58 / M Date of Service: 01/15/23 Loc: ED Accession Number: [id number] ?? Procedure: MR lumbar spine wo con Ordering Provider: Keith Whitehead D.O. PROCEDURE:? MR LUMBAR SPINE WO CON ? INDICATIONS:? severe lumbar pain, weakness ? TECHNIQUE:? Noncontrast sagittal T1 spin echo and T2 fast echo, sagittal STIR, and T2 fast spin echo through the lumbar spine.? In cases with scoliosis, additional coronal T2 fast spin echo may be performed.? ? COMPARISON:? [facility] MR, MR LUMBAR SPINE WITHOUT CONTRAST, 03/28/2021, 9:21. ? FINDINGS:? Image quality:? Excellent.? ? Alignment and Curvature:? There is trace anterolisthesis of L4 on L5. ? Bone Marrow:? Marrow is of normal overall signal.? No acute vertebral body compression fractures.? ? Spinal Cord:? Conus medullaris terminates at the L1 level.? Visualized cord demonstrates normal signal and size.? ? Paraspinous Soft Tissues:? No paravertebral masses.? ? Discs: Multilevel overall mild disc desiccation most prominent L5-S1. ? T12-L1:? No disc bulge, spinal stenosis or foraminal narrowing. ? L1-L2:? No disc bulge, spinal stenosis or foraminal narrowing. ? L2-L3:? No disc bulge, spinal stenosis or foraminal narrowing. ? L3-L4:? No disc bulge, spinal stenosis or foraminal narrowing. ? L4-L5:? Mild disc bulge with evmo-lm-lqhospns spinal stenosis.? Odxu-os-nyggvjhx right foraminal narrowing, slightly progressive.? There is partial effacement of the lateral recesses, right greater than left, unchanged.? Prominent facet and ligamentum flavum hypertrophy are present. ? L5-S1:? Mild disc bulge without spinal stenosis.? Moderate left and mild right foraminal narrowing with facet hypertrophy stable compared to prior exam. ? ? IMPRESSION:? ? Stable interval exam demonstrating multilevel degenerative changes without acute cause of pain. ? Dictated by: Marie Dunham M.D. on 01/15/2023 at 9:24 ? ? Approved by: Marie Dunham M.D. on 01/15/2023 at 9:28 ? MDM Narrative Medical decision making narrative: 58-year-old male with history of progressively worsening low back pain relating to an L and I claim from June of 2020. He has progressively worsening pain and radicular symptoms and has been seen by Dr. Mccarthy who ordered an MRI in a few weeks. He takes anti-inflammatories and gabapentin without significant change. He has hydrocodone which does not help much. He has been seen by physical therapy as well. Per Dr. Mccarthy's note from last week his symptoms are most consistent with lumbar facet arthropathy at L4 and L5 which was demonstrated on an MRI from 2 years ago. He was just started on a Medrol Dosepak. Recently x-ray was performed noting multilevel lumbar spondylosis. His penis severe in his lumbar region and most notable going into his left hip. He has numbness extending down his left leg and in the toes of both feet. He denies loss of control of bowel or bladder. He states feels like his left leg maybe slightly weak but it is hard to tell if it is just significantly painful or not. He denies any new trauma or injury. He was seen and evaluated at an outside facility yesterday and encouraged to present to the emergency department for evaluation and likely MRI After history and exam MRI ordered [facility] CC: Back pain Complicating co-morbidities: History of chronic back pain Data collected from: Patient Medical records reviewed: Differential considered: Includes but not limited to cauda equina lumbar radiculopathy sciatica degenerative disc disease cord compression Exam documented above, pertinent findings include: Numbness to left leg and toes Lab Test results independently reviewed as above. Pertinent findings: No blood work indicated Imaging studies independently reviewed: MRI lumbar spine L4-L5 mild disc bulge with mild to moderate spinal stenosis. Mild to moderate right foraminal narrowing slightly progressive. There is partial effacement of the lateral recesses right greater than left, unchanged. Consultations: None indicated at this time Treatments: None indicated at this time Re-evaluations: Reviewed with patient results. At this time there are changes but will need to follow up with his providers and pain management for changes in his management. Return precautions reviewed. He desires discharge home. Pain is controlled. Discussion: Appropriate for discharge home. No significant neuro deficits. MRI otherwise reassuring but does have changes compared to previous. Patient does have appropriate follow up with providers. Return precautions reviewed with him. He desires discharge home Diagnosis: Acute on chronic back pain with lumbar radiculopathy January 15, 2023 at 7:00 a.m.. Sign out from Dr Whitehead, at this time patient does not require any medications. Patient awaiting for MRI of lumbar spine. Patient does have home pain medications. Being followed by pain management as well. Discharge Plan Departure Patient Disposition: Home Clinical Impression: Chronic lumbar radiculopathy Instructions: DI for Lumbar Radiculopathy Activity Restrictions/Additional Instructions: Please see your providers as well as pain management doctor this week for re- evaluation and review new findings on your MRI of your lumbar spine. Continue home medications. Return if worse if any questions or concerns Prescriptions: No Action ALBUTEROL SULFATE (Ventolin / Proventil) Qty: 0 ASPIRIN (Aspirin Low Dose) 325 mg PO Q DAY Qty: 0 carvedilol [Coreg] 25 MG tablet Qty: 0 alprazolam [Xanax] 0.5 MG tablet Qty: 0 hydrocodone-acetaminophen 5-325 mg tablet 1 tab PO TID PRN (Reason: pain) Qty: 10 0RF ibuprofen 600 mg tablet 600 mg PO Q6-8H PRN (Reason: fever or pain) Qty: 30 0RF Hold Instructions: Home Medication placed on hold at Doctor's office zolpidem 10 mg tablet 10 mg PO ONCE PM PRN hydrochlorothiazide 12.5 mg tablet 12.5 mg PO DAILY acetaminophen 500 mg tablet 500 mg PO Q4-6H PRN (Reason: pain) oxycodone-acetaminophen 5-325 mg tablet 1 tab PO 3XD PRN lisinopril 20 mg tablet 20 mg PO BID duloxetine 60 mg capsule,delayed release(DR/EC) 60 mg PO DAILY cholestyramine-aspartame [Prevalite] 4 gram powder in packet 4 g PO .PRN gabapentin 300 mg capsule 300 mg PO 3XD amlodipine 5 mg tablet 5 mg PO DAILY methylprednisolone [Medrol (Booker)] 4 mg tablets,dose pack See Rx Instructions PO PER PKG DIR Qty: 21 0RF Rx Instructions: PO PER PKG DIR Referrals: Eder Rivera MD [Primary Care Provider] - Stand Alone Forms: Patient Portal/API
--- NOTE | 2023-01-15 06:24 | DI.MRI.S_ITS ---
PROCEDURE: MR LUMBAR SPINE WO CON INDICATIONS: severe lumbar pain, weakness TECHNIQUE: Noncontrast sagittal T1 spin echo and T2 fast echo, sagittal STIR, and T2 fast spin echo through the lumbar spine. In cases with scoliosis, additional coronal T2 fast spin echo may be performed. COMPARISON: [facility] MR, MR LUMBAR SPINE WITHOUT CONTRAST, 03/28/2021, 9:21. FINDINGS: Image quality: Excellent. Alignment and Curvature: There is trace anterolisthesis of L4 on L5. Bone Marrow: Marrow is of normal overall signal. No acute vertebral body compression fractures. Spinal Cord: Conus medullaris terminates at the L1 level. Visualized cord demonstrates normal signal and size. Paraspinous Soft Tissues: No paravertebral masses. Discs: Multilevel overall mild disc desiccation most prominent L5-S1. T12-L1: No disc bulge, spinal stenosis or foraminal narrowing. L1-L2: No disc bulge, spinal stenosis or foraminal narrowing. L2-L3: No disc bulge, spinal stenosis or foraminal narrowing. L3-L4: No disc bulge, spinal stenosis or foraminal narrowing. L4-L5: Mild disc bulge with nfxu-bb-[id number] spinal stenosis. Ucxt-sv-reoaklkj right foraminal narrowing, slightly progressive. There is partial effacement of the lateral recesses, right greater than left, unchanged. Prominent facet and ligamentum flavum hypertrophy are present. L5-S1: Mild disc bulge without spinal stenosis. Moderate left and mild right foraminal narrowing with facet hypertrophy stable compared to prior exam. IMPRESSION: Stable interval exam demonstrating multilevel degenerative changes without acute cause of pain. Dictated by: Marie Dunham M.D. on 01/15/2023 at 9:24 Approved by: Marie Dunham M.D. on 01/15/2023 at 9:28
[2023-01-15 09:15] VITALS: PULSE 55; O2SAT 99
== END 2023-01-15 09:30 | disposition home or self-care (01) ==
PROVIDERS: Emergency Provider Emergency Medicine; Family Provider Internal Medicine; PCP Internal Medicine
DX: M54.16 Radiculopathy, lumbar region (principal)
CPT/HCPCS: 72148; 99281; 99283

== ENCOUNTER 2023-02-07 13:48 | Outpatient (CLI) | payer OTHER, SELFPAY ==
[2023-02-07] VITALS (8 sets, daily range): BP systolic 116–145; BP diastolic 69–83; PULSE 63–79; RESP 11–20; TEMP 36.6; O2SAT 95–97
--- NOTE | 2023-02-07 13:49 | DI.RAD.S_ITS ---
PROCEDURE: PAIN L INTERLAMINAR/CAUDAL INJ INDICATIONS: SPONDYLOSIS COMPARISON: None. FINDINGS: Fluoroscopic spot filming was performed to verify placement of spinal needles at the L4-L5 interlaminar space level(s), as labeled on the films. Appropriate location(s) of the needle tip(s) was confirmed by injection of iodinated contrast. IMPRESSION: Access needle L4-L5 interlaminar space for translaminar epidural steroid injection. Dictated by: Shirlene Solorio MD, PhD on 02/07/2023 at 15:16 Approved by: Shirlene Solorio MD, PhD on 02/07/2023 at 15:16
[2023-02-07] MEDS: MIDAZOLAM 2 MG/2 ML VIAL IV (14:22)
[2023-02-07] MEDS: DEXAMETHASONE 10 MG/ML VIAL INJ (14:28)
[2023-02-07] MEDS: fentaNYL 100 MCG/2 ML INJ 50 MCG IV (14:28)
[2023-02-07] MEDS: IOPAMIDOL 15 ML VIAL 3 ML INJ (14:28)
[2023-02-07] MEDS: BETAMETHASONE 30 MG/5 ML MDV 6 MG INJ (14:28)
[2023-02-07] MEDS: BUPIVACAINE 0.25% (PF) VIAL 2 ML INJ (14:29)
--- NOTE | 2023-02-07 14:44 | P.PCN_ITS ---
Date/Time/Diagnoses Date of procedure: 02/07/23 Time of procedure: 14:44 Pre-procedure diagnosis: 1. HNP WITH RADICULAR FEATURES, 2. MULTILEVEL CENTRAL STENOSIS, Post-procedure diagnosis: same Procedure Notes Procedure: 1. FLUOROSCOPICALLY GUIDED CONTRAST CONTROLLED INTERLAMINAR EPIDURAL STEROID INJECTION -L4/5 Indications: Wali is referred by Dr. Rivera for treatment of Bilateral Foraminal Stenosis R>L LE symptoms. Physician: Rick Mccarthy Total Fluoroscopy time (seconds): 13 Total sedation minutes: 16 Complications: none Procedure in detail & Post-procedure care: FINDINGS Multilevel Central Spinal Stenosis with Nerve Root Compression DESCRIPTION OF PROCEDURE Fluoroscopically guided, contrast-controlled L4/5 translaminar epidural steroid injection. Following review of allergy and review of potential side effects and complications, including, but not necessarily limited to, infection, allergic reaction, local tissue breakdown, temporary as well as permanent nerve injury, paralysis, stroke and possible , the patient indicated that the patient understood and agreed to proceed. An informed consent document was signed by the patient, witnessed by a nurse, and placed in the patient's chart. Additionally, other treatment options including modalities, medications, and physical therapy were reviewed with the patient. After review of previous anaesthesic history and IV conscious sedation the patient was deemed safe to proceed with today?s procedure with IV conscious sedation as ASA class II designation. Safety time-out was performed to confirm patient ID, procedure to be performed and site of procedure. IV sedation was accomplished with a combination of 2mg of Versed and 50mcg of Fentanyl was administered by the RN after DO order, titrated to patient comfort during the course of the procedure while the patient remained responsive to all verbal commands In the prone position, following sterile prep and drape of the lumbar region, the L4/5 translaminar space was identified fluoroscopically. The skin was anesthetized via a 25-gauge, 1.5inch needle with 1% lidocaine solution. At this point, a 22-gauge short bevel spinal needle was atraumatically introduced and advanced under fluoroscopic guidance into the region of the L4/5 translaminar space. Depth was confirmed on lateral view. Radiological data, including multiple fluoroscopic views of the lumbar spine, reveal a spinal needle at the L4/5 translaminar space. Lateral views then show placement of the needle in the epidural space. Subsequent views show contrast material flowing superiorly and inferiorly in the epidural space. No vascular or intrathecal uptake is observed. At this point, using loss of resistance technique with saline and air, the epidural space was entered. This was confirmed following negative aspiration with injection of approximately 1.5cc of Isovue 200, showing excellent epidural flow without vascular or intrathecal uptake. At this point, 1cc of 1% lidocaine solution combined with 2cc or 10mg of dexamethasone and 6mg betamethasone was injected without incident. The patient tolerated the procedure well without signs or symptoms of complica tions prior to transfer to the recovery area continued monitoring without incident. The patient was then transferred to the recovery area where they were observed for an appropriate period of time after the injection. The patient reported a VAS score of 6 prior to the procedure and a post- procedure VAS of 0. POST OP INSTRUCTIONS The patient was provided a Pain Log to continue to record their response to the target-specific procedure prior to follow-up visit with their referring physician. Additionally, specific post-injection care instructions and a contact number to our office were provided if concerns arise regarding possible complications associated with the procedure are suspected.
== END 2023-02-07 14:59 | disposition home or self-care (01) ==
LOC: RAD 13:48
PROVIDERS: Family Provider Internal Medicine; PCP Internal Medicine; Referring Provider Physical Medicine & Rehabilitation; Visit Provider Physical Medicine & Rehabilitation
DX: M51.16 Intervertebral disc disorders with radiculopathy, lumbar region (principal); M48.061 Spinal stenosis, lumbar region without neurogenic claudication
CPT/HCPCS: 62323; 99152; J0702; J1100; J2250; J3010; J3490

== ENCOUNTER → 2023-03-29 09:48 | Outpatient (CLI) | payer OTHER, SELFPAY ==
--- NOTE | 2023-03-29 | DI.US.S_ITS ---
PROCEDURE: US ABDOMEN COMPLETE INDICATIONS: ABDOMINAL PAIN TECHNIQUE: Real-time scanning was performed of the abdominal and retroperitoneal organs, with image documentation. COMPARISON: None. FINDINGS: Liver: Liver is normal in size and homogeneous in echotexture. Parenchyma is diffusely echogenic. Gallbladder: Cholecystectomy. Biliary ducts: Intrahepatic bile ducts are non-dilated. Extrahepatic bile duct caliber measures 3 mm. Normal is 6-7 mm or less in diameter, or 10 mm or less post-cholecystectomy. Pancreas: Visualized portions of the pancreas are sonographically normal. Spleen: Spleen is normal in size and homogeneous in echotexture. Kidneys: Kidneys are normal in size and echotexture. Right kidney measures 10.5 cm long; left kidney measures 12.5 cm long. No hydronephrosis or nephrolithiasis. No solid masses. Anechoic cyst with thin linear septation in the left kidney measuring 1.2 x 1.1 x 1.1 cm. Nonobstructive nephrolith in the left interpolar region measuring 0.6 cm. Aorta: Visualized aorta is normal in caliber at less than 3 cm. Iliacs: Proximal common iliac arteries are normal in caliber at less than 2.5 cm. IVC: Intrahepatic inferior vena cava is patent. Miscellaneous: No free abdominal fluid. IMPRESSION: 1. No sonographic findings to explain abdominal pain. 2. Liver is diffusely echogenic which may be seen in the setting of parenchymal disease such as steatosis. Correlate with LFTs. 3. Anechoic cyst with thin linear septation in the left kidney measuring 1.2 x 1.1 x 1.1 cm. Based on appearance, no additional follow-up needed. Dictated by: Elvie Argueta M.D. on 03/29/2023 at 12:12 Approved by: Elvie Argueta M.D. on 03/29/2023 at 12:26
== END ==
PROVIDERS: Family Provider Internal Medicine; PCP Internal Medicine; Referring Provider Internal Medicine; Visit Provider Internal Medicine
DX: R10.9 Unspecified abdominal pain (principal); N28.1 Cyst of kidney, acquired
CPT/HCPCS: 76700

== ENCOUNTER 2023-04-28 09:26 | Emergency (ER) | payer OTHER, SELFPAY ==
[2023-04-28] VITALS (14 sets, daily range): BP systolic 117–164; BP diastolic 63–95; PULSE 63–99; RESP 12–22; TEMP 36.6; O2SAT 94–100; BMI 30.5
[2023-04-28 10:20] LABS: Add Manual Diff / Slide Review NO; Basophils Absolute Auto 100 /uL (0-100); Basophils Percent Auto 0.3 % (0-2); Eosinophils Absolute Auto 500 /uL (0-450); Eosinophils Percent Auto 3.4 % (2-4); Hematocrit 43.8 % (41-53); Hemoglobin 15.1 g/dL (13.5-17.5); Lymphocytes Absolute Auto 1600 /uL (1100-4500); Lymphocytes Percent Auto 10.5 % (25-40); Mean Corpuscular HGB Conc 34.4 % (30-36); Mean Corpuscular Hemoglobin 29.5 PG (26-34); Mean Corpuscular Volume 85.8 fL (80-100); Monocytes Absolute Auto 900 /uL (0-900); Monocytes Percent Auto 5.9 % (3-14); Neutrophils Absolute Auto 12300 /uL (1500-7000); Neutrophils Percent Auto 79.9 % (50-75); Platelet Count 228 X10^3/uL (150-400); Red Blood Cell Count 5.11 X10^6/uL (4.5-5.9); Red Cell Distribution Width 13.8 % (11.6-14.8); White Blood Cell Count 15.5 X10^3/uL (4.5-11.0)
[2023-04-28 10:26] LABS: Alanine Aminotransferase 24 IU/L (<50); Albumin 4.2 g/dL (3.5-5.0); Albumin Globulin Ratio 1.3 (1.0-2.8); Alkaline Phosphatase 60 U/L (38-126); Aspartate Aminotransferase 23 IU/L (17-59); BUN Creatinine Ratio 9.9 (6-22); Bilirubin Total 0.7 mg/dL (0.2-1.3); Blood Urea Nitrogen 12 mg/dL (9-20); Calcium 9.6 mg/dL (8.4-10.2); Carbon Dioxide 28 mmol/L (22-32); Chloride 107 mmol/L (98-107); Estimated Glomerular Filt Rate > 60 mL/min (>60); Globulin 3.3 g/dL (1.7-4.1); Glucose 109 mg/dL (70-100); HEMOLYSIS < 15 (0-50); Lipase 103 U/L (23-300); Potassium 4.3 mmol/L (3.4-5.1); Sodium 143 mmol/L (137-145); Total Protein 7.5 g/dL (6.3-8.2)
[2023-04-28] MEDS: KETOROLAC 30 MG/ML VIAL 15 MG IV (10:43)
[2023-04-28] MEDS: ONDANSETRON 4 MG/2 ML INJ IV (10:45)
--- NOTE | 2023-04-28 11:20 | ED.ABDPAIN ---
HPI - Abdominal Pain General Chief Complaint: Abdominal Pain Stated Complaint: severe abd pain Time Seen by Provider: 04/28/23 11:18 Source: patient and family Mode of arrival: Ambulatory Limitations: no limitations History of Present Illness HPI narrative: 58-year-old male with history of hypertension, prior Jon fundoplication in 2012, hernia repair in 2013 with removal of a portion of the mesh and closure last November. Patient states he is had abdominal pain on and off but typically more epigastric area and had a suspected paraesophageal. Patient states he has intermittently had bulge aware his mesh was which is more periumbilical and pain but not regularly. Patient states today pain significantly increased in the periumbilical area which is not the typical location. He states very uncomfortable it woke him up from sleep. He states he was not having pain last night. States he does have chronic back pain was increased this morning. Patient states they had removed a portion of the mesh because it was no longer attached left some in place that was still attached and re-sutured the area. He states it was doing okay until January when he noticed a bulge that was about hand size in the periumbilical area. Patient states he has not had any imaging since then he did see Dr. Andujar his surgeon initially who took him to the OR in November when he had the repair and was told he did have a paraesophageal hernia and was referred to another surgeon. He also had an EGD for these events but states that was more the epigastric pain because he gets painful and has a very high blood pressure. That was in August. Patient states no fevers or chills but was diaphoretic when his pain was intense. He was nauseated when his pain was quite intense but had no vomiting. He states he can not really vomit after his Jon. Does have chronic back pain states can sometimes radiate down his legs. He has not L and I claim out for L4-L5 region. He denies any dysuria urgency frequency or incontinence. States he had a normal bowel movement today was formed, without any bright red blood or melena. No diarrhea. Patient states he takes lisinopril and carvedilol. He took an extra dose of amlodipine because his blood pressure was high. He took an aspirin 81 mg daily but states he does not take this every day. He denies any other daily prescription medications but has several on his list. Allergic to clarithromycin. No tobacco, occasional alcohol, no illicit. He is accompanied by his brother and family member. Patient received Toradol he states pain is present but much more controlled defers anything additional for pain. Related Data Home Medications Medication Instructions Recorded Confirmed ALBUTEROL SULFATE (Ventolin / ##0 05/11/10 Proventil) ASPIRIN (Aspirin Low Dose) 325 mg PO Q DAY ##0 07/17/10 alprazolam 0.5 mg tablet (Xanax) ##0 02/01/17 carvedilol 25 mg tablet (Coreg) ##0 02/01/17 acetaminophen 500 mg tablet 500 mg PO Q4-6H PRN pain 01/09/23 amlodipine 5 mg tablet 5 mg PO DAILY 01/09/23 cholestyramine-aspartame 4 gram 4 g PO .PRN 01/09/23 oral powder for susp in a packet (Prevalite) duloxetine 60 mg capsule,delayed 60 mg PO DAILY 01/09/23 release gabapentin 300 mg capsule 300 mg PO 3XD 01/09/23 hydrochlorothiazide 12.5 mg tablet 12.5 mg PO DAILY 01/09/23 lisinopril 20 mg tablet 20 mg PO BID 01/09/23 oxycodone-acetaminophen 5 mg-325 1 tab PO 3XD PRN 01/09/23 mg tablet zolpidem 10 mg tablet 10 mg PO ONCE PM PRN 01/09/23 Previous Rx's Medication Instructions Recorded hydrocodone 5 mg-acetaminophen 325 1 tab PO TID PRN pain #10 tabs 10/26/22 mg tablet ibuprofen 600 mg tablet 600 mg PO Q6-8H PRN fever or pain 10/26/22 #30 tabs methylprednisolone 4 mg tablets in See Rx Instructions PO PER PKG DIR 01/09/23 a dose pack (Medrol (Booker)) radiculopathy #21 ea ondansetron 4 mg disintegrating 4 mg PO Q6H PRN nausea and 04/28/23 tablet vomiting #7 tabs tamsulosin 0.4 mg capsule (Flomax) 0.4 mg PO DAILY #7 caps 04/28/23 Allergies Allergy/AdvReac Type Severity Reaction Status Date / Time clarithromycin Allergy Mild Swelling Verified 04/28/23 09:50 [CLARITHROMYCIN] of Lip/Tongue/Throat Review of Systems Review of Systems ROS Unobtainable: All systems reviewed & are unremarkable except as noted in HPI and below Patient History Medical History Cardiac arrhythmia Chronic pain syndrome Spondylosis of lumbosacral region without myelopathy or radiculopathy Facet arthropathy, lumbar Chest pain Anxiety H. pylori infection Hypertension Social History Smoking Status: Never smoker Smoking Status: Never smoker tobacco type: cigars alcohol intake frequency: holidays/special occasions only Substance Use Type: does not use Exam Narrative Exam Narrative: GENERAL: Alert and oriented x three, male in moderate distress. HEENT: Head normocephalic, atraumatic, EOMI, pupils reactive, face symmetric, moist mucous membranes NECK: Supple, full range of motion CARDIOVASCULAR: Regular rate and rhythm without murmurs, rubs or gallops. RESPIRATORY: Breath sounds equal bilaterally, no wheezes rales or rhonchi. ABDOMEN: Soft, generalized tenderness. No palpable hernia extruding but patient does have a defect adjacent to the umbilicus. Nondistended. Patient has generalized abdominal pain. Normoactive bowel sounds all 4 quadrants. No guarding or rebound, rigidity, no mass, no pulsatile mass or bruit. : No CVA tenderness EXTREMITIES: Normal range of motion, no clubbing or edema. Neurovascularly intact NEUROLOGICAL: Cranial nerves II through XII grossly intact. Moving all extremities SKIN: Warm, dry, no petechiae, no rashes or lesions. Initial Vital Signs Initial Vital Signs: Vital Signs Pulse Rate 63 04/28/23 09:43 Pulse Oximetry 100 04/28/23 09:43 Course Orders Ordered: ED Orders 04/28/23 09:50 EKG-12 Lead Stat 04/28/23 10:05 Complete Blood Count AUTO DIFF Stat Comprehensive Metabolic Panel Stat Lipase Stat 04/28/23 12:01 CT abdomen pelvis w con Stat 04/28/23 12:03 Ictotest Urine Stat Urinalysis and Microscopic Stat Urine Culture Stat Discontinued Medications Sodium Chloride (Normal Saline 0.9%) 1,000 mls @ 1,000 mls/hr IV BOLUS ONE Stop: 04/28/23 13:01 Last Infusion: 04/28/23 13:50 Dose: Infused Documented By: Admin: 04/28/23 12:05 Dose: 1,000 mls/hr Documented By: RB Ketorolac Tromethamine (Ketorolac 30 Mg/Ml Vial) 15 mg IV NOW ONE Stop: 04/28/23 10:40 Last Admin: 04/28/23 10:43 Dose: 15 mg Documented By: RB Ondansetron HCl (Ondansetron 4 Mg Odt) 4 mg PO NOW PRN PRN Reason: Nausea And Vomiting Ondansetron HCl (Ondansetron 4 Mg/2 Ml Inj) 4 mg IV NOW PRN PRN Reason: Nausea And Vomiting Last Admin: 04/28/23 10:45 Dose: 4 mg Documented By: RB Vital Signs Vital signs: Vital Signs - 8 hr 04/28/23 10:25 04/28/23 10:25 04/28/23 10:30 Pulse Rate 80 76 Respiratory Rate 19 Blood Pressure 164/83 H Pulse Oximetry 100 100 04/28/23 10:31 04/28/23 10:31 04/28/23 11:00 Pulse Rate 77 Respiratory Rate 22 Blood Pressure 148/70 H 139/67 Pulse Oximetry 100 04/28/23 11:00 04/28/23 11:30 04/28/23 11:31 Pulse Rate 69 71 Respiratory Rate 12 Blood Pressure 117/63 Pulse Oximetry 97 100 04/28/23 11:31 04/28/23 12:00 04/28/23 12:00 Pulse Rate 71 91 H Respiratory Rate 12 Blood Pressure 128/73 Pulse Oximetry 100 97 04/28/23 12:30 04/28/23 12:30 04/28/23 13:00 Pulse Rate 99 H Respiratory Rate 14 Blood Pressure 136/71 139/69 Pulse Oximetry 94 04/28/23 13:00 04/28/23 13:30 04/28/23 13:30 Pulse Rate 90 86 Respiratory Rate 14 Blood Pressure 136/68 Pulse Oximetry 99 99 MDM - Abdominal Pain Lab Data 04/28/23 10:05 04/28/23 10:05 Labs: Lab Results 04/28/23 04/28/23 Range/Units 10:05 12:03 WBC 15.5 H (4.5-11.0) X10^3/uL RBC 5.11 (4.5-5.9) X10^6/uL Hgb 15.1 (13.5-17.5) g/dL Hct 43.8 (41-53) % MCV 85.8 (80-100) fL MCH 29.5 (26-34) PG MCHC 34.4 (30-36) % RDW 13.8 (11.6-14.8) % Plt Count 228 (150-400) X10^3/uL Neut % (Auto) 79.9 H (50-75) % Lymph % (Auto) 10.5 L (25-40) % Garrett % (Auto) 5.9 (3-14) % Eos % (Auto) 3.4 (2-4) % Baso % (Auto) 0.3 (0-2) % Neut # (Auto) 73642 H (3823-7238) /uL Lymph # (Auto) 1600 (2366-0934) /uL Garrett # (Auto) 900 (0-900) /uL Eos # (Auto) 500 H (0-450) /uL Baso # (Auto) 100 (0-100) /uL Sodium 143 (137-145) mmol/L Potassium 4.3 (3.4-5.1) mmol/L Chloride 107 (98-107) mmol/L Carbon Dioxide 28 (22-32) mmol/L BUN 12 (9-20) mg/dL Creatinine 1.21 (0.66-1.25) mg/dL Estimated GFR > 60 (>60) mL/min BUN/Creatinine Ratio 9.9 (6-22) Glucose 109 H (70-100) mg/dL Calcium 9.6 (8.4-10.2) mg/dL Total Bilirubin 0.7 (0.2-1.3) mg/dL AST 23 (17-59) IU/L ALT 24 (<50) IU/L Alkaline Phosphatase 60 (38-126) U/L Total Protein 7.5 (6.3-8.2) g/dL Albumin 4.2 (3.5-5.0) g/dL Globulin 3.3 (1.7-4.1) g/dL Albumin/Globulin Ratio 1.3 (1.0-2.8) Lipase 103 (23-300) U/L Urine Color Brown Urine Appearance Cloudy Urine pH 5.0 (4.5-8.0) Ur Specific [place] >=1.030 H (1.000-1.035) Urine Protein 2+ H (Negative) Urine Glucose (UA) Negative (Negative) g/dL Urine Ketones Negative (NEGATIVE) Urine Occult Blood 3+ H (Negative) Urine Nitrate Negative (Negative) Urine Bilirubin 1+ H (NEGATIVE) Ur Bilirubin Confirm Negative (Negative) Urine Urobilinogen 1.0 (0.2) E.U./dL Ur Leukocyte Esterase Negative (NEGATIVE) Urine RBC >100/hpf H (0-5/HPF) Urine WBC 1-5/hpf (0-5/HPF) Ur Squamous Epith Cells None seen (0-5/HPF) Calcium Oxalate Crystal Occasional H Amorphous Sediment 1+ Urine Bacteria Occasional (0-1) (None) Ur Culture Indicated? Specimen cultured Point of care testing: Urine Dip Bedside Urine Glucose Negative Bedside Urine Bilirubin + 1 Bedside Urine Ketone +/- 5 Urine Specific [place] 1.030 Bedside Urine Occult Blood +++ Bedside Urine pH 6.0 Bedside Urine Protein ++ 100 Bedside Urine Urobilinogen - Negative Bedside Urine Nitrite - Negative Bedside Urine Leukocytes + [address] scan - abdomen/pelvis: Radiologist's Impression: Close Abdomen/Pelvis CT (Signed) Suzette Carrera - 04/28/23 Abdomen Ultrasound (Signed) Elvie Argueta - 03/29/23 Injection Lumbar, Sacrum (Signed) Shirlene Solorio - 02/07/23 Lumbar Spine MRI (Signed) Marie Dunham - 01/15/23 Lumbar Spine X-Ray (Signed) Rivera Lord - 01/08/23 Abdomen/Pelvis CT (Signed) Conor Dumont - 10/26/22 Chest/Abdomen CT (Signed) Suzette Carrera - 01/17/22 Chest X-Ray (Signed) Radames Mckay - 12/31/21 Chest X-Ray (Signed) Rajan Abbott - 10/02/20 Lumbar Spine X-Ray (Signed) Conor Dumont - 05/20/20 Chest X-Ray (Signed) Rajan Abbott - 09/25/19 Chest X-Ray (Signed) Treasure Samano - 01/09/19 Launch?[address] [address] [address] Scan Report Signed Patient: Wali Eric MR#: [id number] : 1965 Acct:[id number] Age/Sex: 58 / M Date of Service: 04/28/23 Loc: ED Accession Number: [id number] Procedure: CT abdomen pelvis w con Ordering Provider: Lyssa Vee D.O. PROCEDURE: CT ABDOMEN PELVIS W CON INDICATIONS: periumbilical pain, hx mesh partial removal/repair, Jon TECHNIQUE: After the administration of intravenous contrast, axial sections acquired from the lung bases to the pubic symphysis. Coronal and sagittal reformats were performed. For radiation dose reduction, the following was used: automated exposure control, adjustment of mA and/or kV according to patient size. COMPARISON: [facility], CT, CT ABDOMEN PELVIS W CON, 10/26/2022, 16:11. FINDINGS: Image quality: Excellent. Lung bases: Clear lung bases. Small to moderate-sized hiatal hernia. Heart: No significant findings. ABDOMEN: Liver: Unremarkable. Gallbladder: Surgically absent. Biliary ducts: Nondilated. Pancreas: Unremarkable. Spleen: Unremarkable. Adrenal Glands: Unremarkable. Kidneys and Ureters: 5 mm calcification in the left mid ureter with Hounsfield units of 428. There is a mildly delayed left nephrogram, mild hydronephrosis and perinephric inflammation. Mild left periureteric fat stranding. The right kidney is normal. Stomach and Bowel: Stomach, small bowel loops, and colon are unremarkable. Appendix was not seen. Peritoneum: No abnormal intraperitoneal fluid. No free air. Ventral Wall: There is a wide necked, small bowel and fat containing ventral abdominal wall hernia. No fat stranding or fluid in the hernia sac. Abdominal Nodes: No retroperitoneal or mesenteric adenopathy by size criteria. Vessels: Aorta and inferior vena cava are normal in size. Circumaortic left renal vein. PELVIS: Pelvic Organs: Normal. Bladder: Unremarkable. Pelvic Nodes: No enlarged lymph nodes. Miscellaneous: Small fat containing left inguinal hernia. Bones: Unremarkable. IMPRESSION: 1. 5 mm obstructing left mid ureteral stone. 2. Small to moderate size hiatal hernia suspicious for slipped Jon. 3. Nonobstructing small bowel containing wide necked ventral hernia. Dictated by: Suzette Carrera M.D. on 04/28/2023 at 12:58 Approved by: Suzette Carrera M.D. on 04/28/2023 at 13:03 ECG Data Attestation: I personally reviewed and interpreted this ECG as follows: Prior ECG tracings: available for review Interpretation: Sinus rhythm occasional PVC rate of 72 OH 170 QRS 84 QTC of 435. Patient has PVC no acute ST elevation depression appreciated. T-waves upright in 3 was downward and 12/31/2021 prior before that but no other ST changes appreciated. MDM Narrative Medical decision making narrative: 58-year-old male with history of multiple abdominal surgeries with acute onset of abdominal pain periumbilical patient states he is had a bulge since January after hernia mesh was partially removed and repaired in November of 2022. Patient states this is not similar to events he is had when she had been more epigastric. I am able to palpate a defect consistent with a hernia but no bowel feels like it is protruding out words. Patient has a leukocytosis of 15 otherwise normal CBC and platelets electrolytes renal function LFTs do not show major changes. Patient received Zofran and Toradol still has pain but feels much better and defers anything additional for pain. Discussed with patient plan for CT abdomen and pelvis shows by mm obstructing left mid ureteral stone with mildly delayed left nephrogram, mild hydro and perinephric stranding. Right kidney is normal. There is a wide neck small bowel and fat containing ventral abdominal hernia in the ventral wall no fat stranding or fluid in the hernia sac. Nonobstructing. Patient also has a small to moderate size hiatal hernia suspicion for slipped Jon. Discussed with patient's suspect most of his symptoms are related to the kidney stone at this time he has some new back pain which is worsened along with his abdominal pain that is a little bit more leftward than rightward. Patient urine shows blood calcium oxalate crystals it was sent for culture but 1-5 wbc's with no leukocyte esterase or nitrates making my suspicion for infected urine unlikely. Discussed all of patient's findings. His physical exam was not suspicious for obstructive hernia and I did not palpate a large hernia eventually that was out. Patient has been tolerating orals he has been having regular bowel movements. He does have new back pain which he states starting to return. He defers anything additional for pain open for a script of Flomax although he notes he will pick it up tomorrow offered to send to other pharmacies that are open today but he defers. He states he is some additional options for pain management at home. We discussed follow up with General surgery likely larger facilities but did give local follow-up. As well as Urology. All questions answered discussed return precautions. Discharge Plan Departure Patient Disposition: Home Clinical Impression: Kidney stone on left side, Hernia, hiatal, Ventral hernia Instructions: DI for Kidney Stones Activity Restrictions/Additional Instructions: Follow-up for recheck with Urology if symptoms are persisting. Your imaging shows kidney stone on the left likely causing your pain there is a small to moderate-sized hiatal hernia suspicious for slipped Jon as well as a wide necked ventral hernia on your CT imaging. You have a 5 mm stone on the left side likely causing your pain today. Take Flomax once daily until gone. May take Zofran 1 tablet every 6 hours as needed for nausea. You may take Tylenol up to a 1000 mg every 6 hours as needed and/or ibuprofen up to 600 mg every 6 hours as needed Prescription sent to [facility] pharmacy in [place]. Please return for fevers, rapidly worsening abdominal back or flank pain, persistent vomiting, inability urinate or other new or concerning changes. Prescriptions: New tamsulosin [Flomax] 0.4 mg capsule 0.4 mg PO DAILY Qty: 7 0RF ondansetron 4 mg tablet,disintegrating 4 mg PO Q6H PRN (Reason: nausea and vomiting) Qty: 7 0RF No Action ALBUTEROL SULFATE (Ventolin / Proventil) Qty: 0 ASPIRIN (Aspirin Low Dose) 325 mg PO Q DAY Qty: 0 carvedilol [Coreg] 25 MG tablet Qty: 0 alprazolam [Xanax] 0.5 MG tablet Qty: 0 hydrocodone-acetaminophen 5-325 mg tablet 1 tab PO TID PRN (Reason: pain) Qty: 10 0RF ibuprofen 600 mg tablet 600 mg PO Q6-8H PRN (Reason: fever or pain) Qty: 30 0RF Hold Instructions: Home Medication placed on hold at Doctor's office zolpidem 10 mg tablet 10 mg PO ONCE PM PRN hydrochlorothiazide 12.5 mg tablet 12.5 mg PO DAILY acetaminophen 500 mg tablet 500 mg PO Q4-6H PRN (Reason: pain) oxycodone-acetaminophen 5-325 mg tablet 1 tab PO 3XD PRN lisinopril 20 mg tablet 20 mg PO BID duloxetine 60 mg capsule,delayed release(DR/EC) 60 mg PO DAILY cholestyramine-aspartame [Prevalite] 4 gram powder in packet 4 g PO .PRN gabapentin 300 mg capsule 300 mg PO 3XD amlodipine 5 mg tablet 5 mg PO DAILY methylprednisolone [Medrol (Booker)] 4 mg tablets,dose pack See Rx Instructions PO PER PKG DIR Qty: 21 0RF Rx Instructions: PO PER PKG DIR Referrals: Eder Rivera MD [Primary Care Provider] - Tarun Mckeon MD [Physician] - Marc Davidson MD [Physician] - Stand Alone Forms: Patient Portal/API
--- NOTE | 2023-04-28 11:33 | PC.NURSE ---
This RN went in to reassess patient pain and patient is actively sleeping. FLACC scale recorded.
--- NOTE | 2023-04-28 12:01 | DI.CT.S_ITS ---
PROCEDURE: CT ABDOMEN PELVIS W CON INDICATIONS: periumbilical pain, hx mesh partial removal/repair, Jon TECHNIQUE: After the administration of intravenous contrast, axial sections acquired from the lung bases to the pubic symphysis. Coronal and sagittal reformats were performed. For radiation dose reduction, the following was used: automated exposure control, adjustment of mA and/or kV according to patient size. COMPARISON: [facility], CT, CT ABDOMEN PELVIS W CON, 10/26/2022, 16:11. FINDINGS: Image quality: Excellent. Lung bases: Clear lung bases. Small to moderate-sized hiatal hernia. Heart: No significant findings. ABDOMEN: Liver: Unremarkable. Gallbladder: Surgically absent. Biliary ducts: Nondilated. Pancreas: Unremarkable. Spleen: Unremarkable. Adrenal Glands: Unremarkable. Kidneys and Ureters: 5 mm calcification in the left mid ureter with Hounsfield units of 428. There is a mildly delayed left nephrogram, mild hydronephrosis and perinephric inflammation. Mild left periureteric fat stranding. The right kidney is normal. Stomach and Bowel: Stomach, small bowel loops, and colon are unremarkable. Appendix was not seen. Peritoneum: No abnormal intraperitoneal fluid. No free air. Ventral Wall: There is a wide necked, small bowel and fat containing ventral abdominal wall hernia. No fat stranding or fluid in the hernia sac. Abdominal Nodes: No retroperitoneal or mesenteric adenopathy by size criteria. Vessels: Aorta and inferior vena cava are normal in size. Circumaortic left renal vein. PELVIS: Pelvic Organs: Normal. Bladder: Unremarkable. Pelvic Nodes: No enlarged lymph nodes. Miscellaneous: Small fat containing left inguinal hernia. Bones: Unremarkable. IMPRESSION: 1. 5 mm obstructing left mid ureteral stone. 2. Small to moderate size hiatal hernia suspicious for slipped Jon. 3. Nonobstructing small bowel containing wide necked ventral hernia. Dictated by: Suzette Carrera M.D. on 04/28/2023 at 12:58 Approved by: Suzette Carrera M.D. on 04/28/2023 at 13:03
[2023-04-28] MEDS: SODIUM CHLORIDE 0.9% 1,000 ML 1000 ML IV (12:05)
[2023-04-28 12:17] LABS: Appearance Urine UA CLOUDY; Bilirubin Urine UA 1+ (NEGATIVE); Color Urine UA BROWN; Glucose Urine UA NEGATIVE (Negative); Ketones Urine UA NEGATIVE (NEGATIVE); Leukocyte Esterase Urine UA NEGATIVE (NEGATIVE); Nitrite Urine UA NEGATIVE (Negative); Occult Blood Urine UA 3+ (Negative); Protein Urine UA 2+ (Negative); Specific Gravity Urine UA >=1.030 (1.000-1.035)
[2023-04-28 12:19] LABS: Ictotest Urine Negative (Negative)
[2023-04-28 12:25] LABS: Amorphous Sediment Urine 1+; Bacteria Urine Occasional (0-1); Calcium Oxalate Crystals Urine Occasional; Culture Indicated Urine Specimen Cultured; RBC Urine >100/HPF (0-5/HPF); Squamous Epithelial Cell Urine None Seen (0-5/HPF); WBC Urine 1-5/HPF (0-5/HPF)
== END 2023-04-28 14:01 | disposition home or self-care (01) ==
PROVIDERS: Emergency Provider Emergency Medicine; Family Provider Internal Medicine; PCP Internal Medicine
DX: N20.0 Calculus of kidney (principal); K44.9 Diaphragmatic hernia without obstruction or gangrene; K43.9 Ventral hernia without obstruction or gangrene
CPT/HCPCS: 36415; 74177; 80053; 81001; 81003; 83690; 85025; 87086; 93005; 96361; 96374; 96375; 99283; 99284; J1885; J2405; Q9967

== ENCOUNTER → 2023-07-26 08:11 | Outpatient (CLI) | payer OTHER, SELFPAY ==
--- NOTE | 2023-07-26 08:12 | DI.RAD.S_ITS ---
PROCEDURE: FL UPPER GI W AIR INDICATIONS: Other and unspecified ventral hernia with obstruct. History of Jon's fundoplication. COMPARISON: [facility], RF, UPPER GI AIR CONTRAST WITH KUB, 06/26/2010, 9:27. [facility], CT, CT ABDOMEN PELVIS W CON, 04/28/2023, 12:13. 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 No suspicious abdominal calcifications. Visualized solid organ contours appear normal. Bony structures appear unremarkable. Esophagus: Esophageal mucosa is normal on air-contrast views. On single-contrast views, there is normal esophageal peristalsis. No strictures, extrinsic mass effects, or diverticula. No hiatal hernia or elicited gastroesophageal reflux. There is normal transit of a calibrated barium tablet through the esophagus. Stomach: There is appearance of a paraesophageal hiatal hernia. The stomach is normally distensible, with normal rugal fold thickness. No mucosal masses or ulcers. Pylorus and duodenal bulb appear normal in morphology. Duodenal folds are normal in thickness as well. IMPRESSION: 1. There is appearance of a paraesophageal hiatal hernia although the appearance could be related to prior surgery. There is no esophageal obstruction. 2. Normal appearance of stomach and duodenum. 3. No gastroesophageal reflux was elicited during the examination. Dictated by: Radha Samano M.D. on 07/26/2023 at 11:37 Approved by: Radha Samano M.D. on 07/26/2023 at 11:56
== END ==
LOC: RAD 08:11
PROVIDERS: Family Provider Internal Medicine; PCP Internal Medicine; Referring Provider Thoracic Surgery (Cardiothoracic Vascular Surgery); Visit Provider Thoracic Surgery (Cardiothoracic Vascular Surgery)
DX: K43.6 Other and unspecified ventral hernia with obstruction, without gangrene (principal)
CPT/HCPCS: 74246

== ENCOUNTER → 2023-09-06 13:02 | Outpatient (CLI) | payer OTHER, SELFPAY ==
--- NOTE | 2023-09-06 13:08 | DI.RAD.S_ITS ---
PROCEDURE: XR LUMBAR SPINE MIN 4V INDICATIONS: BACK PAIN TECHNIQUE: 5 views of the lumbar spine were acquired, including bilateral oblique views. COMPARISON: [facility], , XR LUMBAR SPINE MIN 4V, 01/08/2023, 14:07. FINDINGS: Bones: 5 nonrib-bearing vertebrae are present. There is grade 1 anterolisthesis measuring 7 mm of L4 on L5. Multilevel degenerative disc space narrowing is present most severe at L5-S1. Severe foraminal narrowing at L5-S1. No vertebral body compression fractures. No suspicious bony lesions. Soft tissues: Overlying bowel gas pattern is normal. No suspicious soft tissue calcifications. Oblique images: No pars defects. IMPRESSION: No acute bony abnormality. Degenerative changes most severe at L5-S1. Dictated by: Marie Dunham M.D. on 09/06/2023 at 16:34 Approved by: Marie Dunham M.D. on 09/06/2023 at 16:34
== END ==
LOC: RAD 13:06
PROVIDERS: Family Provider Internal Medicine; PCP Internal Medicine; Referring Provider Orthopaedic Surgery; Visit Provider Orthopaedic Surgery
DX: M47.27 Other spondylosis with radiculopathy, lumbosacral region (principal); M51.16 Intervertebral disc disorders with radiculopathy, lumbar region; M48.062 Spinal stenosis, lumbar region with neurogenic claudication
CPT/HCPCS: 72110

== ENCOUNTER 2024-03-08 02:06 | Emergency (ER) | payer OTHER, SELFPAY ==
[2024-03-08] VITALS (10 sets, daily range): BP systolic 117–190; BP diastolic 65–92; PULSE 59–85; RESP 18; TEMP 36.5; O2SAT 93–96; BMI 38.6
--- NOTE | 2024-03-08 02:26 | ED_ITS ---
HPI - General Adult General Chief complaint: Urogenital-Male Stated complaint: kidney stone Time Seen by Provider: 03/08/24 02:15 Source: patient Mode of arrival: Ambulatory History of Present Illness HPI narrative: Patient is a 59-year-old male who is here for evaluation of right-sided flank pain. Symptoms have been present for the past 3 days although he does state that there have been periods of time where it was worse than others. When the pain seems the spike he states it lasts for several hours. He denies any urinary symptoms. No change in bowel habits. Has had episodes of vomiting and subjective fevers. He was had a history kidney stones and he states this feels somewhat like prior stones but worse. Did have hydrocodone at home left over from another injury what he has been taking without any improvement of symptoms. Related Data Home Medications Medication Instructions Recorded Confirmed ALBUTEROL SULFATE (Ventolin / ##0 05/11/10 Proventil) ASPIRIN (Aspirin Low Dose) 325 mg PO Q DAY ##0 07/17/10 alprazolam 0.5 mg tablet (Xanax) ##0 02/01/17 carvedilol 25 mg tablet (Coreg) ##0 02/01/17 acetaminophen 500 mg tablet 500 mg PO Q4-6H PRN pain 01/09/23 amlodipine 5 mg tablet 5 mg PO DAILY 01/09/23 cholestyramine-aspartame 4 gram 4 g PO .PRN 01/09/23 oral powder for susp in a packet (Prevalite) duloxetine 60 mg capsule,delayed 60 mg PO DAILY 01/09/23 release gabapentin 300 mg capsule 300 mg PO 3XD 01/09/23 hydrochlorothiazide 12.5 mg tablet 12.5 mg PO DAILY 01/09/23 lisinopril 20 mg tablet 20 mg PO BID 01/09/23 oxycodone-acetaminophen 5 mg-325 1 tab PO 3XD PRN 01/09/23 mg tablet zolpidem 10 mg tablet 10 mg PO ONCE PM PRN 01/09/23 Previous Rx's Medication Instructions Recorded hydrocodone 5 mg-acetaminophen 325 1 tab PO TID PRN pain #10 tabs 10/26/22 mg tablet ibuprofen 600 mg tablet 600 mg PO Q6-8H PRN fever or pain 10/26/22 #30 tabs methylprednisolone 4 mg tablets in See Rx Instructions PO PER PKG DIR 01/09/23 a dose pack (Medrol ([place])) radiculopathy #21 ea ondansetron 4 mg disintegrating 4 mg PO Q6H PRN nausea and 04/28/23 tablet vomiting #7 tabs tamsulosin 0.4 mg capsule (Flomax) 0.4 mg PO DAILY #7 caps 04/28/23 ketorolac 10 mg tablet 10 mg PO Q6H PRN pain #20 tabs 03/08/24 ondansetron 4 mg disintegrating 4 mg PO Q6H PRN nausea and 03/08/24 tablet vomiting #14 tabs Allergies Allergy/AdvReac Type Severity Reaction Status Date / Time clarithromycin Allergy Mild Swelling Verified 04/28/23 09:50 [CLARITHROMYCIN] of Lip/Tongue/Throat Review of Systems Review of Systems Narrative: See HPI Patient History Medical History Cardiac arrhythmia Chronic pain syndrome Spondylosis of lumbosacral region without myelopathy or radiculopathy Facet arthropathy, lumbar Chest pain Anxiety H. pylori infection Hypertension Social History Smoking Status: Never smoker Smoking Status: Never smoker tobacco type: cigars alcohol intake frequency: holidays/special occasions only Substance Use Type: does not use Exam Initial Vital Signs Initial Vital Signs: Vital Signs Temperature 97.7 F 03/08/24 02:15 Pulse Rate 82 03/08/24 02:15 Respiratory Rate 18 03/08/24 02:15 Blood Pressure 190/92 H 03/08/24 02:15 Pulse Oximetry 95 03/08/24 02:15 Oxygen Delivery Method Room Air 03/08/24 02:15 Const General: cooperative, comfortable and No ill appearing [facility] Head: normal to inspection and normocephalic Resp Effort & Inspection: normal respiratory effort Cardio Rate: regular rate GI Inspection: non-distended Skin General: no rashes or lesions noted Neuro General: patient alert, patient awake and moves all extremities Extrem General: capillary refill normal Course Orders Ordered: ED Orders 03/08/24 02:17 Basic Metabolic Panel Stat Complete Blood Count AUTO DIFF Stat 03/08/24 02:27 CT kidney ureter bladder (KUB) Stat 03/08/24 03:46 Urine Microscopic Stat Discontinued Medications Ketorolac Tromethamine (Ketorolac 30 Mg/Ml Vial) 15 mg IV NOW ONE Stop: 03/08/24 02:28 Last Admin: 03/08/24 02:31 Dose: 15 mg Documented By: AB Vital Signs Vital signs: Vital Signs - 8 hr 03/08/24 02:15 03/08/24 02:43 03/08/24 03:01 Temperature 97.7 F Pulse Rate 82 67 85 Respiratory Rate 18 Blood Pressure 190/92 H Pulse Oximetry 95 93 95 Oxygen Delivery Method Room Air Room Air 03/08/24 03:30 03/08/24 03:44 03/08/24 03:50 Temperature Pulse Rate 64 Respiratory Rate 18 Blood Pressure 147/74 H 143/85 H Pulse Oximetry 94 Oxygen Delivery Method 03/08/24 03:50 03/08/24 04:00 03/08/24 04:00 Temperature Pulse Rate 79 63 Respiratory Rate Blood Pressure 134/69 Pulse Oximetry 96 95 Oxygen Delivery Method 03/08/24 04:30 03/08/24 04:30 Temperature Pulse Rate 59 L Respiratory Rate Blood Pressure 117/65 Pulse Oximetry 96 Oxygen Delivery Method Medical Decision Making Lab Data Lab results reviewed: Yes I reviewed the patient's lab results. 03/08/24 02:17 03/08/24 02:17 Labs: Lab Results 03/08/24 03/08/24 Range/Units 02:17 03:46 WBC 15.3 H (4.5-11.0) X10^3/uL RBC 5.08 (4.5-5.9) X10^6/uL Hgb 14.6 (13.5-17.5) g/dL Hct 43.8 (41-53) % MCV 86.2 (80-100) fL MCH 28.7 (26-34) PG MCHC 33.3 (30-36) % RDW 14.5 (11.6-14.8) % Plt Count 234 (150-400) X10^3/uL Neut % (Auto) 80.0 H (50-75) % Lymph % (Auto) 10.5 L (25-40) % Saline % (Auto) 8.3 (3-14) % Eos % (Auto) 0.8 L (2-4) % Baso % (Auto) 0.4 (0-2) % Neut # (Auto) 28012 H (9095-3480) /uL Lymph # (Auto) 1600 (9037-1802) /uL Saline # (Auto) 1300 H (0-900) /uL Eos # (Auto) 100 (0-450) /uL Baso # (Auto) 100 (0-100) /uL Sodium 139 (137-145) mmol/L Potassium 4.3 (3.4-5.1) mmol/L Chloride 105 (98-107) mmol/L Carbon Dioxide 26 (22-32) mmol/L BUN 19 (9-20) mg/dL Creatinine 1.54 H (0.66-1.25) mg/dL Estimated GFR 52 L (>60) mL/min BUN/Creatinine Ratio 12.3 (6-22) Glucose 147 H (70-100) mg/dL Calcium 9.4 (8.4-10.2) mg/dL Urine RBC 1-5/hpf D (0-5/HPF) Urine WBC 1-5/hpf (0-5/HPF) Ur Squamous Epith Cells 0-1 /hpf (0-5/HPF) Calcium Oxalate Crystal Few H Urine Bacteria None seen (None) Ur Culture Indicated? Cult not indicated Vol Urine Centrifuged 10ml (spun) Urine Dip Bedside Urine Glucose Negative Bedside Urine Bilirubin - Negative Bedside Urine Ketone - Negative Urine Specific [place] 1.03 Bedside Urine Occult Blood ++ Bedside Urine pH 5.5 Bedside Urine Protein +/- 15 Bedside Urine Urobilinogen - Negative Bedside Urine Nitrite - Negative Bedside Urine Leukocytes - Negative Esterase Point of care testing: Urine Dip Bedside Urine Glucose Negative Bedside Urine Bilirubin - Negative Bedside Urine Ketone - Negative Urine Specific [place] 1.03 Bedside Urine Occult Blood ++ Bedside Urine pH 5.5 Bedside Urine Protein +/- 15 Bedside Urine Urobilinogen - Negative Bedside Urine Nitrite - Negative Bedside Urine Leukocytes - Negative Esterase Imaging Data CT scan - abdomen/pelvis: Radiologist's Impression: PROCEDURE: CT KIDNEY URETER BLADDER (KUB) INDICATIONS: R sided flank pain eval for stone TECHNIQUE: Axial sections were acquired from the lung bases to the pubic symphysis. Coronal and sagittal reformats were performed. For radiation dose reduction, the following was used: automated exposure control, adjustment of mA and/or kV according to patient size. COMPARISON: [facility], CT, CT ABDOMEN PELVIS [facility], 04/28/2023, 12:13. FINDINGS: Image quality: Diagnostic. Peritoneum: There is no pneumoperitoneum. There is no ascites. Bones: There is no acute osseous abnormality. The visualized vertebral body heights are preserved. Lower Chest: The visualized lung parenchyma is clear. Liver: The liver is normal in size and contour. Hepatic steatosis. Gallbladder: Status postcholecystectomy. Biliary tree: There is no intrahepatic or extrahepatic biliary ductal dilatation. Pancreas: The pancreas is within normal limits. Spleen: The spleen is normal in size. Kidneys: The right kidney slightly larger than the left and edematous. Mild right hydroureteronephrosis secondary to a 4 mm calculus in the distal ureter just proximal to the ureterovesicular junction (2/79). Punctate nonobstructive 1 mm calculus at the left middle calyx (4/39). 1.5 cm left superior renal simple cyst (4/41). Adrenals: There is no adrenal nodularity. Bladder: The urinary bladder is within normal limits. : No acute abnormality. Stomach: Small hiatal hernia. The stomach is otherwise within normal limits. Bowel: The bowel is normal in diameter without any bowel obstruction. The appendix is within normal limits. Lymph Nodes: There is no retroperitoneal, mesenteric, or inguinal lymphadenopathy. Vascular: There is no abdominal aortic aneurysm. Retroaortic left renal vein. Soft tissue: Fluid density 1.8 x 9.8 x 6.1 cm lenticular fluid collection in the right median nerve rectus abdominus muscle tissues at the site of a prior ventral abdominal hernia (see 04/28/2023 exam), presumably status post repair (; ). Minimal adjacent fat stranding is present. IMPRESSION: 1. Mild right hydroureteronephrosis secondary to a 4 mm calculus at the distal right ureter proximal to the UVJ. 2. Nonobstructive left calyceal nephrolithiasis. 3. Right ventral abdominal 9.8 cm fluid collection, which may represent a seroma or abscess. Please correlate with a recent history of surgical repair and clinical symptoms. 4. Hepatic steatosis. MDM Narrative Medical decision making narrative: Patient does have a 3-4 mm calculus in the right UVJ which is most consistent with his presenting symptoms. He does have a slight bump in his creatinine which is also consistent with renal colic. Urinalysis does not show signs of UTI. Has a leukocytosis however I suspect that this is stress reaction given the discomfort that he was having. He has no midline abdominal pain. There is a rather large fluid collection in the midline of his abdomen. He was not tender over this area. No fevers. Within the past 3 months he has had surgery for a hernia repair. I have higher suspicion that this is seroma versus infection. Patient has pain medication at home. Will discharge home with nausea medication and Toradol as that did seem to help his symptoms quite a bit here in the ER. He does have a urologist that he was relationship with a he will contact on Saturday for follow-up. He was given return precautions. He expressed understanding and agreement. Discharge Plan Departure Patient Disposition: Home Clinical Impression: Renal colic on right side Instructions: DI for Kidney Stones Activity Restrictions/Additional Instructions: You can use the pain medication that you have at home as needed. The ketorolac as an anti-inflammatory. A prescription for this was sent to the pharmacy of your choice. This would be instead of ibuprofen/Motrin/Naprosyn. I also recommend on Saturday you contact the your urologist for a follow-up. Also recommend that you contact the surgeon who did your hernia surgery to discuss what is most likely the seroma noted on the CT scan today. Return to the emergency department for new or worsening symptoms. Prescriptions: New ondansetron 4 mg tablet,disintegrating 4 mg PO Q6H PRN (Reason: nausea and vomiting) Qty: 14 0RF ketorolac 10 mg tablet 10 mg PO Q6H PRN (Reason: pain) Qty: 20 0RF Rx Instructions: maximum total duration of 5 days from all oral, intranasal, or parenteral formulations No Action ALBUTEROL SULFATE (Ventolin / Proventil) Qty: 0 ASPIRIN (Aspirin Low Dose) 325 mg PO Q DAY Qty: 0 carvedilol [Coreg] 25 MG tablet Qty: 0 alprazolam [Xanax] 0.5 MG tablet Qty: 0 hydrocodone-acetaminophen 5-325 mg tablet 1 tab PO TID PRN (Reason: pain) Qty: 10 0RF ibuprofen 600 mg tablet 600 mg PO Q6-8H PRN (Reason: fever or pain) Qty: 30 0RF Hold Instructions: Home Medication placed on hold at Doctor's office tamsulosin [Flomax] 0.4 mg capsule 0.4 mg PO DAILY Qty: 7 0RF ondansetron 4 mg tablet,disintegrating 4 mg PO Q6H PRN (Reason: nausea and vomiting) Qty: 7 0RF zolpidem 10 mg tablet 10 mg PO ONCE PM PRN hydrochlorothiazide 12.5 mg tablet 12.5 mg PO DAILY acetaminophen 500 mg tablet 500 mg PO Q4-6H PRN (Reason: pain) oxycodone-acetaminophen 5-325 mg tablet 1 tab PO 3XD PRN lisinopril 20 mg tablet 20 mg PO BID duloxetine 60 mg capsule,delayed release(DR/EC) 60 mg PO DAILY cholestyramine-aspartame [Prevalite] 4 gram powder in packet 4 g PO .PRN gabapentin 300 mg capsule 300 mg PO 3XD amlodipine 5 mg tablet 5 mg PO DAILY methylprednisolone [Medrol (Booker)] 4 mg tablets,dose pack See Rx Instructions PO PER PKG DIR Qty: 21 0RF Rx Instructions: PO PER PKG DIR Referrals: Eder Rivera MD [Primary Care Provider] - Stand Alone Forms: Patient Portal/API
--- NOTE | 2024-03-08 02:27 | PC.NURSE ---
see triage note
[2024-03-08] MEDS: KETOROLAC 30 MG/ML VIAL 15 MG IV (02:31)
[2024-03-08 02:34] LABS: BUN Creatinine Ratio 12.3 (6-22); Blood Urea Nitrogen 19 mg/dL (9-20); Calcium 9.4 mg/dL (8.4-10.2); Carbon Dioxide 26 mmol/L (22-32); Chloride 105 mmol/L (98-107); Estimated Glomerular Filt Rate 52 mL/min (>60); Glucose 147 mg/dL (70-100); HEMOLYSIS 34 (0-50); Potassium 4.3 mmol/L (3.4-5.1); Sodium 139 mmol/L (137-145)
[2024-03-08 02:37] LABS: Add Manual Diff / Slide Review NO; Basophils Absolute Auto 100 /uL (0-100); Basophils Percent Auto 0.4 % (0-2); Eosinophils Absolute Auto 100 /uL (0-450); Eosinophils Percent Auto 0.8 % (2-4); Hematocrit 43.8 % (41-53); Hemoglobin 14.6 g/dL (13.5-17.5); Lymphocytes Absolute Auto 1600 /uL (1100-4500); Lymphocytes Percent Auto 10.5 % (25-40); Mean Corpuscular HGB Conc 33.3 % (30-36); Mean Corpuscular Hemoglobin 28.7 PG (26-34); Mean Corpuscular Volume 86.2 fL (80-100); Monocytes Absolute Auto 1300 /uL (0-900); Monocytes Percent Auto 8.3 % (3-14); Neutrophils Absolute Auto 12200 /uL (1500-7000); Platelet Count 234 X10^3/uL (150-400); Red Blood Cell Count 5.08 X10^6/uL (4.5-5.9); Red Cell Distribution Width 14.5 % (11.6-14.8); White Blood Cell Count 15.3 X10^3/uL (4.5-11.0)
[2024-03-08 04:43] LABS: Bacteria Urine None Seen; Calcium Oxalate Crystals Urine Few; Culture Indicated Urine Cult Not Indicated; RBC Urine 1-5/HPF (0-5/HPF); Squamous Epithelial Cell Urine 0-1 /HPF (0-5/HPF); Urine Volume 10mL (spun); WBC Urine 1-5/HPF (0-5/HPF)
== END 2024-03-08 05:43 | disposition home or self-care (01) ==
PROVIDERS: Emergency Provider Emergency Medicine; Family Provider Internal Medicine; PCP Internal Medicine
DX: N23 Unspecified renal colic (principal); N20.1 Calculus of ureter; R50.9 Fever, unspecified; R79.89 Other specified abnormal findings of blood chemistry; Z87.442 Personal history of urinary calculi; Z79.899 Other long term (current) drug therapy; K76.0 Fatty (change of) liver, not elsewhere classified
CPT/HCPCS: 36415; 74176; 80048; 81003; 81015; 85025; 96374; 99284; J1885

== ENCOUNTER → 2024-05-13 11:41 | Outpatient (CLI) | payer OTHER, SELFPAY ==
--- NOTE | 2024-05-13 11:43 | DI.RAD.S_ITS ---
PROCEDURE: XR HAND LT MIN 3V INDICATIONS: Unspecified sprain of right thumb, initial encounter TECHNIQUE: 3 views of the hand(s) acquired. COMPARISON: None. FINDINGS: Bones: There are no osseous abnormalities Joints: Moderate 1st CMC degeneration appreciated. There is mild degenerative change in all interphalangeal joints. Soft tissues: No soft tissue abnormality. IMPRESSION: Degeneration Dictated by: Sanjeev Smith M.D. on 05/14/2024 at 11:59 Approved by: Sanjeev Smith M.D. on 05/14/2024 at 12:00
== END ==
PROVIDERS: Family Provider Internal Medicine; PCP Internal Medicine; Referring Provider Internal Medicine; Visit Provider Internal Medicine
DX: S63.601A Unspecified sprain of right thumb, initial encounter (principal); M18.12 Unilateral primary osteoarthritis of first carpometacarpal joint, left hand; X58.XXXA Exposure to other specified factors, initial encounter
CPT/HCPCS: 73130

== ENCOUNTER 2025-05-22 11:54 | Emergency (ER) | payer OTHER, SELFPAY ==
[2025-05-22] VITALS (19 sets, daily range): BP systolic 88–117; BP diastolic 55–71; PULSE 63–85; RESP 9–22; TEMP 36.7; O2SAT 96–99; BMI 26.4
--- NOTE | 2025-05-22 11:59 | DI.RAD.S_ITS ---
PROCEDURE: XR CHEST 1V INDICATIONS: Chest Pain TECHNIQUE: One view of the chest was acquired. COMPARISON: None. FINDINGS: Surgical changes and devices: Cholecystectomy clips are seen. Lungs and pleura: An incomplete inspiratory result is noted, causing a crowded appearance to the lung markings. No focal infiltrates are seen. No pneumothorax or significant pleural effusions are seen. Mediastinum: Mediastinal contours appear normal. Heart size is normal. Bones and chest wall: No suspicious bony lesions. Age-appropriate bony degenerative changes are seen. Overlying soft tissues appear unremarkable. IMPRESSION: Limited portable chest examination, without a significant cardiopulmonary abnormality identified. Postoperative and degenerative changes are seen. Dictated by: Rajan Abbott M.D. on 05/22/2025 at 12:40 Approved by: Rajan Abbott M.D. on 05/22/2025 at 12:41
--- NOTE | 2025-05-22 12:06 | EKG_ITS ---
[facility] [address] [place] [address] Test Date: 2025-05-22 Pat Name: Wali Eric Department: [facility] Room: Gender: Male Group Activities Aide: BERNARDO : 1965 Requested By: Order Number: [id number] Reading MD: Measurements Intervals [place] Rate: 81 P: 43 MS: 180 QRS: 28 QRSD: 82 T: 32 QT: 366 QTc: 425 Interpretive Statements Normal sinus rhythm
[2025-05-22 12:29] LABS: Add Manual Diff / Slide Review NO; Hematocrit 38.6 % (41-53); Hemoglobin 13.1 g/dL (13.5-17.5); Lymphocytes Absolute Auto 1900 /uL (1100-4500); Mean Corpuscular HGB Conc 34.0 % (30-36); Mean Corpuscular Hemoglobin 29.4 PG (26-34); Mean Corpuscular Volume 86.5 fL (80-100); Platelet Count 166 X10^3/uL (150-400)
[2025-05-22 12:37] LABS: INR 0.9 (0.9-1.3); Prothrombin Time 10.7 SECONDS (9.4-12.5)
[2025-05-22 12:39] LABS: PTT Partial Thromboplastin Tim 27 SECONDS (25.1-36.5)
[2025-05-22 12:40] LABS: Alanine Aminotransferase 26 IU/L (<50); Albumin 3.5 g/dL (3.5-5.0); Albumin Globulin Ratio 1.2 (1.0-2.8); Alkaline Phosphatase 74 U/L (38-126); Blood Urea Nitrogen 15 mg/dL (9-20); Calcium 8.6 mg/dL (8.4-10.2); Carbon Dioxide 26 mmol/L (22-32); Chloride 108 mmol/L (98-107); Creatine Kinase 60 U/L (55-170); Estimated Glomerular Filt Rate > 60 mL/min (>60); Globulin 2.9 g/dL (1.7-4.1); Glucose 130 mg/dL (70-99); HEMOLYSIS < 15 (0-50); Lipase 83 U/L (23-300); Magnesium 1.9 mg/dL (1.6-2.3); Potassium 3.9 mmol/L (3.4-5.1); Sodium 139 mmol/L (137-145); Total Protein 6.4 g/dL (6.3-8.2)
[2025-05-22 12:52] LABS: NT-proBNP (BNP-Adult 18+) 81 pg/mL (<125); Troponin I < 0.012 ng/mL (0.01-0.034)
--- NOTE | 2025-05-22 13:10 | PC.NURSE ---
Pt's family member reports pt is having new onset difficulty finding words and keeping track of time. LKW 10:30 AM this morning. Pt is recovering from recent spinal surgery. Upon assessment pt remains neuro intact, pupils are equal and reactive, bilateral strength at baseline for both upper and lower extremities. Pt reports intermittent worsening leg spasms to R leg, where his R knee often valerie. Muscle spams can be visualized and felt on R lower extremity from calf to upper thigh. MD notified.
--- NOTE | 2025-05-22 13:12 | DI.CT.S_ITS ---
PROCEDURE: CT ABDOMEN PELVIS W CON INDICATIONS: abd pain TECHNIQUE: After the administration of intravenous contrast, axial sections acquired from the lung bases to the pubic symphysis. Coronal and sagittal reformats were performed. For radiation dose reduction, the following was used: automated exposure control, adjustment of mA and/or kV according to patient size. COMPARISON: [facility], CT, CT KUB, 12/09/2024, 14:49. [facility], CT, CT ABDOMEN PELVIS W CON, 04/28/2023, 12:13. FINDINGS: Image quality: Diagnostic. Lower Chest: A small to moderate hiatal hernia is again seen. ABDOMEN: Liver: No solid mass. Gallbladder: Cholecystectomy. Biliary ducts: No biliary dilation. Pancreas: No ductal dilation. Spleen: Size is within normal limits. Adrenal Glands: No adrenal nodules. Kidneys and Ureters: Within the left renal pelvis, there is a stone seen, measuring 9 mm and 500 Hounsfield units. There is mild to moderate left-sided hydroureter, yet without a cause of distal obstruction seen. No hydronephrosis is seen on the right- side. The kidneys demonstrate normal size and enhance symmetrically. Stomach and Bowel: Normal colonic caliber, without significant wall thickening. No dilated loops of small bowel are seen. Peritoneum: No abnormal intraperitoneal fluid. No free air. Ventral Wall: Rectus diastasis is seen. Abdominal Nodes: No retroperitoneal or mesenteric adenopathy by size criteria. Vessels: Aorta and inferior vena cava are normal in size. PELVIS: Pelvic Organs: Unremarkable. Bladder: No bladder wall thickening, accounting for underdistention. Pelvic Nodes: No enlarged lymph nodes. Miscellaneous: There is a fat containing left inguinal hernia. Bones: No aggressive osseous abnormality. L4-L5 postoperative change is seen. IMPRESSION: There is a 9 mm stone seen within the left renal pelvis which may be partially obstructing. There is [id number] left-sided hydroureter, yet without a distal obstructing stone. Please consider a recently passed stone. Additional findings: Small to moderate hiatal hernia Cholecystectomy L4-L5 postoperative change Fat containing left inguinal hernia Dictated by: Rajan Abbott M.D. on 05/22/2025 at 12:50 Approved by: Rajan Abbott M.D. on 05/22/2025 at 12:53
[2025-05-22] MEDS: LACTATED RINGERS 1,000 ML 1000 ML IV (13:46)
--- NOTE | 2025-05-22 14:53 | ED.CHESTPAIN ---
HPI - Chest Pain General Chief Complaint: Chest Pain Stated Complaint: Epigastric/CP Time Seen by Provider: 05/22/25 12:08 Mode of arrival: EMS History of Present Illness HPI narrative: 60-year-old gentleman history of kidney stone, Rufino fundoplication surgery in 2012, cholecystectomy, hernia surgery presents with epigastric pain radiating to chest today but it felt different than usual. He reports after having Rufino fundoplication surgery they may have nicked his vagus nerve and at times his by pressure bottoms out. He did take 1 nitro prior to arrival which initially did not help but now has. He no longer has any chest pain or shortness of breath or epigastric pain. Patient denies any nausea, vomiting, diarrhea, rectal bleeding, constipation, urinary complaints, fever, chills, shortness of breath. Other than what is stated 14 point review of system is negative. Related Data Home Medications ?Medication ?Instructions ?Recorded ?Confirmed ALBUTEROL SULFATE (Ventolin / ##0 05/11/10 Proventil) ASPIRIN (Aspirin Low Dose) 325 mg PO Q DAY ##0 07/17/10 alprazolam 0.5 mg tablet (Xanax) ##0 02/01/17 carvedilol 25 mg tablet (Coreg) ##0 02/01/17 acetaminophen 500 mg tablet 500 mg PO Q4-6H PRN pain 01/09/23 amlodipine 5 mg tablet 5 mg PO DAILY 01/09/23 cholestyramine-aspartame 4 gram 4 g PO .PRN 01/09/23 oral powder for susp in a packet (Prevalite) duloxetine 60 mg capsule,delayed 60 mg PO DAILY 01/09/23 release gabapentin 300 mg capsule 300 mg PO 3XD 01/09/23 hydrochlorothiazide 12.5 mg tablet 12.5 mg PO DAILY 01/09/23 lisinopril 20 mg tablet 20 mg PO BID 01/09/23 oxycodone-acetaminophen 5 mg-325 1 tab PO 3XD PRN 01/09/23 mg tablet zolpidem 10 mg tablet 10 mg PO ONCE PM PRN 01/09/23 Previous Rx's ?Medication ?Instructions ?Recorded hydrocodone 5 mg-acetaminophen 325 1 tab PO TID PRN pain #10 tabs 10/26/22 mg tablet ibuprofen 600 mg tablet 600 mg PO Q6-8H PRN fever or pain 10/26/22 Held on 01/09/23. #30 tabs Instructions: Home Medication placed on hold at Doctor's office methylprednisolone 4 mg tablets in See Rx Instructions PO PER PKG DIR 01/09/23 a dose pack (Medrol (Booker)) radiculopathy #21 ea ondansetron 4 mg disintegrating 4 mg PO Q6H PRN nausea and 04/28/23 tablet vomiting #7 tabs tamsulosin 0.4 mg capsule (Flomax) 0.4 mg PO DAILY #7 caps 04/28/23 ketorolac 10 mg tablet 10 mg PO Q6H PRN pain #20 tabs 03/08/24 ondansetron 4 mg disintegrating 4 mg PO Q6H PRN nausea and 03/08/24 tablet vomiting #14 tabs hydrocodone 5 mg-acetaminophen 325 1 tab PO Q4-6H PRN pain #20 tabs 05/22/25 mg tablet tamsulosin 0.4 mg capsule (Flomax) 0.4 mg PO DAILY #30 caps 05/22/25 Allergies Allergy/AdvReac Type Severity Reaction Status Date / Time clarithromycin Allergy Mild Swelling Verified 05/22/25 12:08 (CLARITHROMYCIN) of Lip/Tongue/Throat Review of Systems Review of Systems ROS Unobtainable: All systems reviewed & are unremarkable except as noted in HPI and below Patient History Medical History Cardiac arrhythmia Chronic pain syndrome Spondylosis of lumbosacral region without myelopathy or radiculopathy Facet arthropathy, lumbar Chest pain Anxiety H. pylori infection Hypertension tobacco type: cigars alcohol intake frequency: holidays/special occasions only Exam Narrative Exam Narrative: GENERAL: [60] year old patient appears stated age. Well-developed patient, in mild distress. HEAD: Atraumatic. Normocephalic. EYES: Pupils equal round and reactive. Extraocular motions intact. No scleral icterus. No injection or drainage. ENT: Nose without bleeding, purulent drainage. Throat without erythema, tonsillar hypertrophy or exudate. Airway patent. NECK: Trachea midline. Non tender CARDIOVASCULAR: Regular rate and rhythm without murmurs, gallops, or rubs. RESPIRATORY: Clear to auscultation. Breath sounds equal bilaterally. No wheezes, rales, or rhonchi. GASTROINTESTINAL: Abdomen soft, non-tender, nondistended. EXTREMITIES: No edema or joint tenderness. BACK: Nontender without deformity or crepitance. No flank tenderness. NEURO: AOx3. SKIN: No rash or erythema of visible areas Initial Vital Signs Initial Vital Signs: Vital Signs Pulse Rate 84 05/22/25 12:04 Pulse Oximetry 96 05/22/25 12:04 Course Orders Ordered: ED Orders 05/22/25 11:59 XR chest 1V Stat EKG-12 Lead Stat 05/22/25 12:15 Complete Blood Count AUTO DIFF Stat Comprehensive Metabolic Panel Stat Lipase Stat Magnesium Stat NT-proBNP (BNP-Adult 18+) Stat PTT Partial Thromboplastin Alessio Stat Prothrombin Time INR Stat Troponin & CK Cardiac Panel Stat 05/22/25 13:12 CT abdomen pelvis w con Stat 05/22/25 15:20 Urinalysis and Microscopic Stat Discontinued Medications Aspirin (Aspirin 81 Mg Chew Tab) 324 mg PO NOW ONE Stop: 05/22/25 12:00 Last Admin: 05/22/25 12:07 Dose: Not Given Documented By: TIARA Lactated Ringer's (Lactated Ringers) 1,000 mls @ 1,000 mls/hr IV BOLUS ONE Stop: 05/22/25 14:11 Last Infusion: 05/22/25 14:44 Dose: Infused Documented By: Admin: 05/22/25 13:46 Dose: 1,000 mls/hr Documented By: TIARA Tamsulosin HCl (Tamsulosin 0.4 Mg Capsule) 0.4 mg PO NOW ONE Stop: 05/22/25 14:56 Last Admin: 05/22/25 16:00 Dose: 0.4 mg Documented By: CYNTHIA Vital Signs Vital signs: Vital Signs - 8 hr 05/22/25 12:04 05/22/25 12:08 05/22/25 12:30 Temperature 98.0 F Pulse Rate 84 80 Respiratory Rate 16 Blood Pressure 110/68 105/61 Pulse Oximetry 96 97 Oxygen Delivery Method Room Air 05/22/25 12:30 05/22/25 13:00 05/22/25 13:00 Temperature Pulse Rate 79 81 Respiratory Rate 15 13 Blood Pressure 94/56 L Pulse Oximetry 97 97 Oxygen Delivery Method Room Air 05/22/25 13:15 05/22/25 13:15 05/22/25 13:21 Temperature Pulse Rate 80 79 Respiratory Rate 14 14 Blood Pressure 88/55 L Pulse Oximetry 96 96 Oxygen Delivery Method 05/22/25 13:21 05/22/25 13:35 05/22/25 13:36 Temperature Pulse Rate 84 Respiratory Rate 16 Blood Pressure 93/57 L 111/70 Pulse Oximetry 98 Oxygen Delivery Method 05/22/25 13:36 05/22/25 13:45 05/22/25 13:45 Temperature Pulse Rate 85 79 Respiratory Rate 12 22 Blood Pressure 117/71 Pulse Oximetry 98 98 Oxygen Delivery Method 05/22/25 14:00 05/22/25 14:00 05/22/25 14:15 Temperature Pulse Rate 72 71 Respiratory Rate 13 12 Blood Pressure 103/63 Pulse Oximetry 98 98 Oxygen Delivery Method 05/22/25 14:15 05/22/25 14:30 05/22/25 14:30 Temperature Pulse Rate 66 Respiratory Rate 11 L Blood Pressure 98/63 104/65 Pulse Oximetry 96 Oxygen Delivery Method 05/22/25 14:45 05/22/25 14:45 05/22/25 15:00 Temperature Pulse Rate 64 Respiratory Rate 11 L Blood Pressure 102/65 101/66 Pulse Oximetry 97 Oxygen Delivery Method 05/22/25 15:00 05/22/25 15:15 05/22/25 15:15 Temperature Pulse Rate 69 67 Respiratory Rate 17 13 Blood Pressure 105/65 Pulse Oximetry 99 Oxygen Delivery Method 05/22/25 15:30 05/22/25 15:30 05/22/25 15:45 Temperature Pulse Rate 65 Respiratory Rate 10 L Blood Pressure 106/69 99/63 Pulse Oximetry Oxygen Delivery Method 05/22/25 15:45 05/22/25 16:00 05/22/25 16:00 Temperature Pulse Rate 63 64 Respiratory Rate 9 L 9 L Blood Pressure 106/65 Pulse Oximetry 97 Oxygen Delivery Method 05/22/25 16:15 05/22/25 16:15 Temperature Pulse Rate 66 Respiratory Rate 14 Blood Pressure 104/70 Pulse Oximetry 98 Oxygen Delivery Method MDM - Chest Pain Lab Data 05/22/25 12:15 05/22/25 12:15 Labs: Lab Results 05/22/25 05/22/25 Range/Units 12:15 15:20 WBC 9.0 (4.5-11.0) X10^3/uL RBC 4.46 L (4.5-5.9) X10^6/uL Hgb 13.1 L (13.5-17.5) g/dL Hct 38.6 L (41-53) % MCV 86.5 (80-100) fL MCH 29.4 (26-34) PG MCHC 34.0 (30-36) % RDW 14.2 (11.6-14.8) % Plt Count 166 (150-400) X10^3/uL Neut % (Auto) 67.2 (50-75) % Lymph % (Auto) 21.4 L (25-40) % [place] % (Auto) 9.3 (3-14) % Eos % (Auto) 1.7 L (2-4) % Baso % (Auto) 0.4 (0-2) % Neut # (Auto) 6000 (7873-3072) /uL Lymph # (Auto) 1900 (1654-3132) /uL [place] # (Auto) 800 (0-900) /uL Eos # (Auto) 200 (0-450) /uL Baso # (Auto) 0 (0-100) /uL PT 10.7 (9.4-12.5) SECONDS INR 0.9 (0.9-1.3) APTT 27 (25.1-36.5) SECONDS Sodium 139 (137-145) mmol/L Potassium 3.9 (3.4-5.1) mmol/L Chloride 108 H (98-107) mmol/L Carbon Dioxide 26 (22-32) mmol/L BUN 15 (9-20) mg/dL Creatinine 0.81 (0.66-1.25) mg/dL Estimated GFR > 60 (>60) mL/min BUN/Creatinine Ratio 18.5 (6-22) Glucose 130 H (70-99) mg/dL Calcium 8.6 (8.4-10.2) mg/dL Magnesium 1.9 (1.6-2.3) mg/dL Total Bilirubin 0.5 (0.2-1.3) mg/dL AST 21 (17-59) IU/L ALT 26 (<50) IU/L Alkaline Phosphatase 74 (38-126) U/L Total Creatine Kinase 60 (55-170) U/L Troponin I < 0.012 (0.01-0.034) ng/mL NT-Pro-B Natriuret Pep 81 (<125) pg/mL Total Protein 6.4 (6.3-8.2) g/dL Albumin 3.5 (3.5-5.0) g/dL Globulin 2.9 (1.7-4.1) g/dL Albumin/Globulin Ratio 1.2 (1.0-2.8) Lipase 83 (23-300) U/L Urine Color Yellow Urine Appearance Clear Urine pH 6.0 (4.5-8.0) Ur Specific Jessie 1.020 (1.000-1.035) Urine Protein Negative (Negative) Urine Glucose (UA) Negative (Negative) g/dL Urine Ketones Negative (NEGATIVE) Urine Occult Blood 1+ H (Negative) Urine Nitrate Negative (Negative) Urine Bilirubin Negative (NEGATIVE) Urine Urobilinogen 0.2 (0.2) E.U./dL Ur Leukocyte Esterase Negative (NEGATIVE) Urine RBC 1-5/hpf (0-5/HPF) Urine WBC None seen (0-5/HPF) Ur Squamous Epith Cells None seen (0-5/HPF) Urine Bacteria None seen (None) Ur Culture Indicated? Cult not indicated Vol Urine Centrifuged 10ml (spun) Imaging Data Chest x-ray: Radiologist's Impression: [place] [address] XRay Report Signed Patient: Wali Eric MR#: [id number] : 1965 Acct:[id number] Age/Sex: 60 / M Date of Service: 05/22/25 Loc: ED Accession Number: [id number] Procedure: XR chest 1V Ordering Provider: Sanjeev Sena D.O. PROCEDURE: XR CHEST 1V INDICATIONS: Chest Pain TECHNIQUE: One view of the chest was acquired. COMPARISON: None. FINDINGS: Surgical changes and devices: Cholecystectomy clips are seen. Lungs and pleura: An incomplete inspiratory result is noted, causing a crowded appearance to the lung markings. No focal infiltrates are seen. No pneumothorax or significant pleural effusions are seen. Mediastinum: Mediastinal contours appear normal. Heart size is normal. Bones and chest wall: No suspicious bony lesions. Age-appropriate bony degenerative changes are seen. Overlying soft tissues appear unremarkable. IMPRESSION: Limited portable chest examination, without a significant cardiopulmonary abnormality identified. Postoperative and degenerative changes are seen. CT scan - abdomen/pelvis: Radiologist's Impression: [address] [address] [address] Scan Report Signed Patient: Wali Eric MR#: [id number] : 1965 Acct:[id number] Age/Sex: 60 / M Date of Service: 05/22/25 Loc: ED Accession Number: [id number] Procedure: CT abdomen pelvis w con Ordering Provider: Sanjeev Sena D.O. PROCEDURE: CT ABDOMEN PELVIS W CON INDICATIONS: abd pain TECHNIQUE: After the administration of intravenous contrast, axial sections acquired from the lung bases to the pubic symphysis. Coronal and sagittal reformats were performed. For radiation dose reduction, the following was used: automated exposure control, adjustment of mA and/or kV according to patient size. COMPARISON: [facility], CT, CT KUB, 12/09/2024, 14:49. [facility], CT, CT ABDOMEN PELVIS W CON, 04/28/2023, 12:13. FINDINGS: Image quality: Diagnostic. Lower Chest: A small to moderate hiatal hernia is again seen. ABDOMEN: Liver: No solid mass. Gallbladder: Cholecystectomy. Biliary ducts: No biliary dilation. Pancreas: No ductal dilation. Spleen: Size is within normal limits. Adrenal Glands: No adrenal nodules. Kidneys and Ureters: Within the left renal pelvis, there is a stone seen, measuring 9 mm and 500 Hounsfield units. There is mild to moderate left-sided hydroureter, yet without a cause of distal obstruction seen. No hydronephrosis is seen on the right-side. The kidneys demonstrate normal size and enhance symmetrically. Stomach and Bowel: Normal colonic caliber, without significant wall thickening. No dilated loops of small bowel are seen. Peritoneum: No abnormal intraperitoneal fluid. No free air. Ventral Wall: Rectus diastasis is seen. Abdominal Nodes: No retroperitoneal or mesenteric adenopathy by size criteria. Vessels: Aorta and inferior vena cava are normal in size. PELVIS: Pelvic Organs: Unremarkable. Bladder: No bladder wall thickening, accounting for underdistention. Pelvic Nodes: No enlarged lymph nodes. Miscellaneous: There is a fat containing left inguinal hernia. Bones: No aggressive osseous abnormality. L4-L5 postoperative change is seen. IMPRESSION: There is a 9 mm stone seen within the left renal pelvis which may be partially obstructing. There is [id number] left-sided hydroureter, yet without a distal obstructing stone. Please consider a recently passed stone. ECG Data Interpretation: NSR HR 81 WA 180 QRS [address]-t wave change Unchanged from 04/28/23 [facility] Narrative Medical decision making narrative: All lab work, vital signs, nurse triage note, medication list, previous ER visits, and all imaging studies reviewed. Chest x-ray showed no acute process. CT abdomen and pelvis showed 9 mm stone within the left renal pelvis which may be partially obstructing. Mild to moderate left-sided hydroureter without distal obstructing stone. Urine normal. Differential diagnosis radiculitis kidney stone kidney infection diverticulitis pancreatitis small-bowel obstruction constipation. DC home on [employer] Flomax strainer and to follow up with the urologist. Discharge Plan Departure Patient Disposition: Home Clinical Impression: Kidney stone Instructions: DI for Kidney Stones Activity Restrictions/Additional Instructions: Return with new or worsening symptoms. Follow up with Dr. Londono urologist . ? ? keep hydrated. Take medicines as directed. Prescriptions: New tamsulosin [Flomax] 0.4 mg capsule 0.4 mg PO DAILY Qty: 30 0RF hydrocodone-acetaminophen 5-325 mg tablet 1 tab PO Q4-6H PRN (Reason: pain) Qty: 20 0RF No Action ALBUTEROL SULFATE (Ventolin / Proventil) Qty: 0 ASPIRIN (Aspirin Low Dose) 325 mg PO Q DAY Qty: 0 carvedilol [Coreg] 25 MG tablet Qty: 0 alprazolam [Xanax] 0.5 MG tablet Qty: 0 ondansetron 4 mg tablet,disintegrating 4 mg PO Q6H PRN (Reason: nausea and vomiting) Qty: 14 0RF ketorolac 10 mg tablet 10 mg PO Q6H PRN (Reason: pain) Qty: 20 0RF Rx Instructions: maximum total duration of 5 days from all oral, intranasal, or parenteral formulations hydrocodone-acetaminophen 5-325 mg tablet 1 tab PO TID PRN (Reason: pain) Qty: 10 0RF ibuprofen 600 mg tablet 600 mg PO Q6-8H PRN (Reason: fever or pain) Qty: 30 0RF tamsulosin [Flomax] 0.4 mg capsule 0.4 mg PO DAILY Qty: 7 0RF ondansetron 4 mg tablet,disintegrating 4 mg PO Q6H PRN (Reason: nausea and vomiting) Qty: 7 0RF zolpidem 10 mg tablet 10 mg PO ONCE PM PRN hydrochlorothiazide 12.5 mg tablet 12.5 mg PO DAILY acetaminophen 500 mg tablet 500 mg PO Q4-6H PRN (Reason: pain) oxycodone-acetaminophen 5-325 mg tablet 1 tab PO 3XD PRN lisinopril 20 mg tablet 20 mg PO BID duloxetine 60 mg capsule,delayed release(DR/EC) 60 mg PO DAILY cholestyramine-aspartame [Prevalite] 4 gram powder in packet 4 g PO .PRN gabapentin 300 mg capsule 300 mg PO 3XD amlodipine 5 mg tablet 5 mg PO DAILY methylprednisolone [Medrol (Booker)] 4 mg tablets,dose pack See Rx Instructions PO PER PKG DIR Qty: 21 0RF Rx Instructions: PO PER PKG DIR Referrals: Camron Londono DO [Physician, Urology] Eder Rivera MD [Primary Care Provider, Internal Medicine] Stand Alone Forms: Patient Portal/API
[2025-05-22 15:34] LABS: Appearance Urine UA CLEAR; Bilirubin Urine UA NEGATIVE (NEGATIVE); Color Urine UA YELLOW; Glucose Urine UA NEGATIVE (Negative); Ketones Urine UA NEGATIVE (NEGATIVE); Leukocyte Esterase Urine UA NEGATIVE (NEGATIVE); Nitrite Urine UA NEGATIVE (Negative); Occult Blood Urine UA 1+ (Negative); Protein Urine UA NEGATIVE (Negative); Specific Gravity Urine UA 1.020 (1.000-1.035); Urobilinogen Urine UA 0.2 E.U./dL (0.2); pH Urine UA 6.0 (4.5-8.0)
[2025-05-22 15:51] LABS: Culture Indicated Urine Cult Not Indicated
[2025-05-22] MEDS: TAMSULOSIN 0.4 MG CAPSULE PO (16:00)
--- NOTE | 2025-05-22 16:26 | PC.NURSE ---
Urine strainer sent home w/pt, per provider's order.
== END 2025-05-22 16:27 | disposition home or self-care (01) ==
PROVIDERS: Emergency Provider Family Medicine; Family Provider Internal Medicine; PCP Internal Medicine
DX: N20.0 Calculus of kidney (principal); N13.4 Hydroureter; R07.9 Chest pain, unspecified; Z98.890 Other specified postprocedural states
CPT/HCPCS: 71045; 74177; 80053; 81001; 82550; 83690; 83735; 83880; 84484; 85025; 85610; 85730; 93005; 99284; J7120; Q9967